=== PATIENT | male | born 1960 | race Caucasian/White ===

== ENCOUNTER 2018-05-28 09:57 | Inpatient (IN) | payer OTHER ==
--- NOTE | 2018-05-28 10:17 | PDOC ---
History of Present Illness - General Chief Complaint: Pain, Acute Stated Complaint: SIDE PAIN/VOMITTING Time Seen by Provider: 05/28/18 10:13 - History of Present Illness Initial Comments: 05/28/18 10:31 58yo M luxembourgish speaking male with no PMH presents to the ED with R sided abdominal pain for 1 month and NBNB vomiting for 1 week. +anorexia and weight loss over the last month. Pt was in DR 1 month ago, diagnosed with cholecystitis, treated with antibiotics and DC. Denies fevers, chills, diarrhea, CP, SOB, focal weakness/ numbness, constipation. Pt has had 2 inguinal hernia repairs distantly PT states he is on a medication he got from the DR called immunoferon, states he doesnt know for what Denies hx liver disease Saw his PMD this morning and when he vomited, they sent him to the ED. Past History - Past Medical History Allergies/Adverse Reactions: Allergies Allergy/AdvReac Type Severity Reaction Status Date / Time No Known Allergies Allergy Verified 05/28/18 10:02 Home Medications: Ambulatory Orders Inmunoferon 0 cap ASDIR 05/28/18 COPD: No GI Disorders: Yes (hepatic disease) - Suicide/Smoking/Psychosocial Hx Smoking History: Never smoked Review of Systems - Review of Systems Comments:: 05/28/18 13:56 GENERAL/CONSTITUTIONAL: No fever or chills. No weakness. HEAD, EYES, EARS, NOSE AND THROAT: No change in vision. No ear pain or discharge. No sore throat. GASTROINTESTINAL: +nausea, vomiting, no diarrhea or constipation.+abd pain GENITOURINARY: No dysuria, frequency, or change in urination. CARDIOVASCULAR: No chest pain or shortness of breath. RESPIRATORY: No cough, wheezing, or hemoptysis. MUSCULOSKELETAL: No joint or muscle swelling or pain. No neck or back pain. SKIN: No rash NEUROLOGIC: No headache, vertigo, loss of consciousness, or change in strength/ sensation. ENDOCRINE: No increased thirst. No abnormal weight change. HEMATOLOGIC/LYMPHATIC: No anemia, easy bleeding, or history of blood clots. ALLERGIC/IMMUNOLOGIC: No hives or skin allergy. *Physical Exam - Vital Signs Last Vital Signs Temp Pulse Resp BP Pulse Ox 98.1 F 116 H 18 116/69 100 05/28/18 09:58 05/28/18 09:58 05/28/18 09:58 05/28/18 09:58 05/28/18 09:58 - Physical Exam Comments: 05/28/18 13:58 GENERAL: Awake, alert, and fully oriented, in no acute distress HEAD: No signs of trauma EYES: PERRLA, EOMI, sclera anicteric, conjunctiva clear ENT: Oropharynx clear without exudates. Dry MM NECK: Normal ROM, supple, no lymphadenopathy, JVD, or masses LUNGS: Breath sounds equal, clear to auscultation bilaterally. No wheezes, and no crackles HEART: Regular rate and rhythm, normal S1 and S2, no murmurs, rubs or gallops ABDOMEN: Soft, nontender, normoactive bowel sounds. No guarding, no rebound. No masses EXTREMITIES: Normal range of motion, no edema. No clubbing or cyanosis. No cords, erythema, or tenderness NEUROLOGICAL: Normal speech, cranial nerves intact, equal strength and sensation b/l SKIN: Warm, Dry, normal turgor, no rashes or lesions noted. Moderate Sedation - Procedure Monitoring Vital Signs: Procedure Monitoring Vital Signs Temperature 98.1 F 05/28/18 09:58 Pulse Rate 116 H 05/28/18 09:58 Respiratory Rate 18 05/28/18 09:58 Blood Pressure 116/69 05/28/18 09:58 O2 Sat by Pulse Oximetry (%) 100 05/28/18 09:58 Heart Score/ECG Review #1 05/28/18 14:16 Twelve-lead EKG was performed and reviewed by me. Sinus tachycardia, rate 105. Normal axis. No ST elevations or T-wave inversions. ED Treatment Course - LABORATORY CBC & Chemistry Diagram: 05/28/18 11:00 05/28/18 11:00 Medical Decision Making - Medical Decision Making 05/28/18 13:34 58yo M recent diganosis cholecystitis presents to the ED with persistent RUQ pain, vomiting, weight loss. Labs with bili, AST/ALT, Fortino phos bump and leukocytosis to 18. US with small stones, thickened wall, sludge, and borderline dilated CBD. Case discussed with Dr. Chávez Plan to cover with Rachelle Pt status post 1L NS, now getting LR @125cc/hr NPO MRCP Hepatitis panel Pt admitted to hospitalist, case dicussed with Alban Bazan, pt accepted to Dr. Aguilera's service Case discussed in detail with admitting physician including history, physical exam and ancillary studies. Admitting physician has assumed care for the patient, will follow all pending diagnostics and will complete the evaluation and treatment. *DC/Admit/Observation/Transfer Diagnosis at time of Disposition: Cholecystitis, Vomiting, Abdominal pain - Discharge Dispostion Condition at time of disposition: Stable Decision to Admit order: Yes - Referrals Referrals: Jewel Soriano MD [Primary Care Provider] - - Patient Instructions - Post Discharge Activity - Attestations Physician Attestion: 05/28/18 13:18 I, Dr. Charli Bhatt MD, attest that this document has been prepared under my direction and personally reviewed by me in its entirety. I further attest, that it accurately reflects all work, treatment, procedures and medical decision -making performed by me.
[2018-05-28] MEDS ORDERED: SODIUM CHLORIDE 1,000 ML IV STA (10:39)
[2018-05-28] MEDS ORDERED: ONDANSETRON 4 MG/2 ML VIAL IVPUSH ONE (10:40)
[2018-05-28] MEDS ORDERED: ACETAMINOPHEN 1000 MG/100 ML VIAL (NON FORMULARY) IVPB ONE ×2 (10:40→17:30)
[2018-05-28] MEDS ORDERED: ONDANSETRON 4 MG/2 ML VIAL ONE (11:06)
[2018-05-28] MEDS ORDERED: ACETAMINOPHEN INJECTION 100 ML IVPB ONE (11:06)
[2018-05-28 11:25] LABS: BASO % 0.3 % (0-2.0); HEMATOCRIT 42.3 % (35.4-49); HEMOGLOBIN 14.3 GM/dL (11.7-16.9); MCH 27.5 pg (25.7-33.7); MCHC 33.7 g/dl (32.0-35.9); MEAN CELL VOLUME 81.4 fl (80-96); MEAN PLT VOLUME 9.2 fl (7.5-11.1); MONO % 6.2 % (3.8-10.2); NEUT % 91.5 % (42.8-82.8); PLATELET COUNT 308 K/MM3 (134-434); RDW 13.5 % (11.9-15.9); WHITE BLOOD COUNT 18.2 K/mm3 (4.0-10.0)
[2018-05-28 12:04] LABS: ALBUMIN 3.6 g/dl (3.4-5.0); ALK PHOS 123 U/L (45-117); ANION GAP 7 MMOL/L (8-16); BILIRUBIN,TOTAL 2.4 mg/dL (0.2-1); BLOOD UREA NITROGEN 15 mg/dL (7-18); CALCIUM 9.3 mg/dL (8.5-10.1); CHLORIDE 103 mmol/L (98-107); CO2 27 mmol/L (21-32); CREATININE 1.2 mg/dL (0.55-1.3); GLUCOSE,RANDOM 100 mg/dL (74-106); LIPASE 146 U/L (73-393); POTASSIUM 4.1 mmol/L (3.5-5.1); SGOT/AST 181 U/L (15-37); SGPT/ALT 152 U/L (13-61); SODIUM 137 mmol/L (136-145); TOT PROT 6.9 g/dl (6.4-8.2)
[2018-05-28 12:27] LABS: ANISOCYTOSIS 0; MACROCYTOSIS 0; PLATELET ESTIMATE NORMAL
[2018-05-28] MEDS ORDERED: PIPERACILLIN/TAZOB 4.5 GM 4.5 GM in DEXTROSE 5%-WATER - 100 ML IVPB ONE (12:59)
[2018-05-28] MEDS ORDERED: LACTATED RINGERS SOLUTION 1,000 ML/1,000 ML INFUS.BAG IV SCH (13:00)
[2018-05-28] MEDS ORDERED: PIPERACILLIN/TAZOB 4.5 GM 4.5 GM/100 ML BAG IVPB ONE (13:24)
[2018-05-28] MEDS ORDERED: LACTATED RINGERS SOLUTION 1,000 ML IV SCH (13:30)
--- NOTE | 2018-05-28 13:34 | HP ---
CHIEF COMPLAINT: Abdominal pain PCP: None HISTORY OF PRESENT ILLNESS: 58yo Latvian-speaking M with no history who presents Recent Travel: Resides in [place]ST MEDICAL HISTORY: Reportedly none PAST SURGICAL HISTORY: None Social History: Smoking: Denies Alcohol: Denies Drugs: Denies Allergies No Known Allergies Allergy (Verified 05/28/18 10:02) HOME MEDICATIONS: Home Medications Medication Instructions Recorded Inmunoferon 0 cap ASDIR 05/28/18 REVIEW OF SYSTEMS As per HPI PHYSICAL EXAMINATION Vital Signs - 24 hr 05/28/18 09:58 Temperature 98.1 F Pulse Rate 116 H Respiratory 18 Rate Blood Pressure 116/69 O2 Sat by Pulse 100 Oximetry (%) GENERAL: Awake, alert, and fully oriented, in no acute distress. HEAD: Normal with no signs of trauma. EYES: Pupils equal, round and reactive to light, extraocular movements intact, sclera anicteric, conjunctiva clear. No lid lag. EARS, NOSE, THROAT: Ears normal, nares patent, oropharynx clear without exudates. Moist mucous membranes. NECK: Normal range of motion, supple without lymphadenopathy, JVD, or masses. LUNGS: Breath sounds equal, clear to auscultation bilaterally. No wheezes, and no crackles. No accessory muscle use. HEART: Regular rate and rhythm, normal S1 and S2 without murmur, rub or gallop. ABDOMEN: Soft, nontender, not distended, normoactive bowel sounds, no guarding, no rebound, no masses. No hepatomegaly or splenomegaly. MUSCULOSKELETAL: Normal range of motion at all joints. No bony deformities or tenderness. No CVA tenderness. UPPER EXTREMITIES: 2+ pulses, warm, well-perfused. No cyanosis. No clubbing. No peripheral edema. LOWER EXTREMITIES: 2+ pulses, warm, well-perfused. No calf tenderness. No peripheral edema. NEUROLOGICAL: Cranial nerves II-XII intact. Normal speech. Normal gait. PSYCHIATRIC: Cooperative. Good eye contact. Appropriate mood and affect. SKIN: Warm, dry, normal turgor, no rashes or lesions noted, normal capillary refill. Laboratory Results - last 24 hr 05/28/18 05/28/18 05/28/18 11:00 11:00 11:00 WBC 18.2 H RBC 5.20 Hgb 14.3 Hct 42.3 MCV 81.4 MCH 27.5 MCHC 33.7 RDW 13.5 Plt Count 308 MPV 9.2 Absolute Neuts (auto) 16.7 H Neutrophils % 91.5 H Neutrophils % (Manual) 94.0 H Band Neutrophils % 0.0 Lymphocytes % 2.0 L Lymphocytes % (Manual) 3.0 L Monocytes % 6.2 Monocytes % (Manual) 2 L Eosinophils % 0.0 Eosinophils % (Manual) 0.0 Basophils % 0.3 Basophils % (Manual) 1.0 Myelocytes % (Man) 0 Promyelocytes % (Man) 0 Blast Cells % (Manual) 0 Nucleated RBC % 0 Metamyelocytes 0 Hypochromia 0 Platelet Estimate Normal Polychromasia 0 Poikilocytosis 0 Anisocytosis 0 Microcytosis 0 Macrocytosis 0 PTT (Actin FS) 25.5 Sodium 137 Potassium 4.1 Chloride 103 Carbon Dioxide 27 Anion Gap 7 L BUN 15 Creatinine 1.2 Creat Clearance w eGFR > 60 Random Glucose 100 Calcium 9.3 Total Bilirubin 2.4 H AST 181 H ALT 152 H Alkaline Phosphatase 123 H Total Protein 6.9 Albumin 3.6 Lipase 146 Blood Type Antibody Screen 05/28/18 11:00 WBC RBC Hgb Hct MCV MCH MCHC RDW Plt Count MPV Absolute Neuts (auto) Neutrophils % Neutrophils % (Manual) Band Neutrophils % Lymphocytes % Lymphocytes % (Manual) Monocytes % Monocytes % (Manual) Eosinophils % Eosinophils % (Manual) Basophils % Basophils % (Manual) Myelocytes % (Man) Promyelocytes % (Man) Blast Cells % (Manual) Nucleated RBC % Metamyelocytes Hypochromia Platelet Estimate Polychromasia Poikilocytosis Anisocytosis Microcytosis Macrocytosis PTT (Actin FS) Sodium Potassium Chloride Carbon Dioxide Anion Gap BUN Creatinine Creat Clearance w eGFR Random Glucose Calcium Total Bilirubin AST ALT Alkaline Phosphatase Total Protein Albumin Lipase Blood Type O POSITIVE Antibody Screen Negative ASSESSMENT/PLAN: Abdominal pain r/o cholecystitis (acute vs. chronic) Transaminitis Hyperbilirubinemia Leukocytosis with Left-shift --Surgery consulted --Coverage with Zosyn 3.375gm q8h --MRCP for further imaging --Morphine 2mg q4h PRN for pain 7-10 --LR bolus in ED; continue LR @125cc/hr FEN: Fluids: LR@125cc/hr Electrolyte abnormalities: None Nutrition: STRICT NPO PPX: DVT - SCDs only Dispo: Admit to med-surg; MRCP pending Case discussed with Dr. Chávez and Dr. Willy Phoenix, DO - IM PGY-2
[2018-05-28 14:34] LABS: INR 1.27 (0.83-1.09)
[2018-05-28 14:39] LABS: URINE APPEARANCE CLEAR; URINE BILIRUBIN NEGATIVE (<2.0 mg/dL); URINE COLOR LTYELLOW; URINE GLUCOSE (UA) NEGATIVE (NEGATIVE); URINE KETONE NEGATIVE (NEGATIVE); URINE LEUK ESTERASE NEGATIVE (NEGATIVE); URINE NITRITE NEGATIVE (NEGATIVE); URINE PROTEIN NEGATIVE (NEGATIVE); URINE UROBILINOGEN NEGATIVE mg/dL (0.2-1.0)
[2018-05-28 14:42] LABS: EPI CELLS RARE /HPF (FEW)
--- NOTE | 2018-05-28 14:53 | PN ---
Teaching Attending Note Name of Resident: Anibal Phoenix ATTENDING PHYSICIAN STATEMENT I saw and evaluated the patient. I reviewed the resident's note and discussed the case with the resident. I agree with the resident's findings and plan as documented. SUBJECTIVE: OBJECTIVE: Initial Vital Signs Temp Pulse Resp BP Pulse Ox 98.1 F 116 H 18 116/69 100 05/28/18 09:58 05/28/18 09:58 05/28/18 09:58 05/28/18 09:58 05/28/18 09:58 Vital Signs Period Temp Pulse Resp BP Sys/Mackenzie Pulse Ox Last 24 Hr 98.1 F 116 18 116/69 100 GENERAL: Awake, alert, and fully oriented, in no acute distress. HEAD: Normal with no signs of trauma. EYES: Pupils equal, round and reactive to light, extraocular movements intact, sclera anicteric, conjunctiva clear. No lid lag. EARS, NOSE, THROAT: Ears normal, nares patent, oropharynx clear without exudates. Moist mucous membranes. NECK: Normal range of motion, supple without lymphadenopathy, JVD, or masses. LUNGS: Breath sounds equal, clear to auscultation bilaterally. No wheezes, and no crackles. No accessory muscle use. HEART: Regular rate and rhythm, normal S1 and S2 without murmur, rub or gallop. ABDOMEN: Soft, nontender, not distended, normoactive bowel sounds, no guarding, no rebound, no masses. No hepatomegaly or splenomegaly. MUSCULOSKELETAL: Normal range of motion at all joints. No bony deformities or tenderness. No CVA tenderness. EXTREMITIES: 2+ pulses, warm, well-perfused. No cyanosis. No clubbing. No peripheral edema. NEUROLOGICAL: Cranial nerves II-XII intact. Normal speech. Normal gait. PSYCHIATRIC: Cooperative. Good eye contact. Appropriate mood and affect. SKIN: Warm, dry, normal turgor, no rashes or lesions noted, normal capillary refill. CBCD WBC 18.2 K/mm3 (4.0-10.0) H 05/28/18 11:00 RBC 5.20 M/mm3 (4.00-5.60) 05/28/18 11:00 Hgb 14.3 GM/dL (11.7-16.9) 05/28/18 11:00 Hct 42.3 % (35.4-49) 05/28/18 11:00 MCV 81.4 fl (80-96) 05/28/18 11:00 MCHC 33.7 g/dl (32.0-35.9) 05/28/18 11:00 RDW 13.5 % (11.9-15.9) 05/28/18 11:00 Plt Count 308 K/MM3 (134-434) 05/28/18 11:00 MPV 9.2 fl (7.5-11.1) 05/28/18 11:00 CMP Sodium 137 mmol/L (136-145) 05/28/18 11:00 Potassium 4.1 mmol/L (3.5-5.1) 05/28/18 11:00 Chloride 103 mmol/L (98-107) 05/28/18 11:00 Carbon Dioxide 27 mmol/L (21-32) 05/28/18 11:00 Anion Gap 7 MMOL/L (8-16) L 05/28/18 11:00 BUN 15 mg/dL (7-18) 05/28/18 11:00 Creatinine 1.2 mg/dL (0.55-1.3) 05/28/18 11:00 Creat Clearance w eGFR > 60 (>60) 05/28/18 11:00 Random Glucose 100 mg/dL (74-106) 05/28/18 11:00 Calcium 9.3 mg/dL (8.5-10.1) 05/28/18 11:00 Total Bilirubin 2.4 mg/dL (0.2-1) H 05/28/18 11:00 AST 181 U/L (15-37) H 05/28/18 11:00 ALT 152 U/L (13-61) H 05/28/18 11:00 Alkaline Phosphatase 123 U/L (45-117) H 05/28/18 11:00 Total Protein 6.9 g/dl (6.4-8.2) 05/28/18 11:00 Albumin 3.6 g/dl (3.4-5.0) 05/28/18 11:00 Current Medications Generic Name Dose Route Start Last Admin Trade Name Freq PRN Reason Stop Dose Admin Lactated Ringer's 1,000 mls @ 125 mls/hr 05/28/18 13:30 Lactated Ringers Solution IV ASDIR DUNIA Piperacillin Sod/Tazobactam 50 mls @ 100 mls/hr 05/28/18 18:00 Sod 3.375 gm/ Dextrose IVPB Q8H-IV DUNIA Protocol Morphine Sulfate 2 mg 05/28/18 13:29 Morphine Sulfate IVPUSH Q4H PRN PAIN LEVEL 7 - 10 Home Medications Medication Instructions Recorded Inmunoferon 0 cap ASDIR 05/28/18 ASSESSMENT AND PLAN: # Acute Abdominal pain r/o cholecystitis with leukocytosis on iv zosyn, ID on the case. ordered MRCP pending, surgery on the case # Acute transaminitis will monitor # Hyperbilirubinemia
--- NOTE | 2018-05-28 16:27 | CON.GI ---
Consult Consult Specialty:: GI Referred by:: Hospitalist Service Reason for Consultation:: Abdominal pain and abnormal liver chemistries - History of Present Illness Chief Complaint: I was having pain and was told I had a gallbladder problem in the [place] History of Present Illness: 58M admitted through [facility] ER for evaluation of abdominal pain. He describes the pain as intermittent in nature, worse after meals and located in the right upper abdomen. He describes lower back pressure when the pain occurs as well and had associated nausea with vomiting as well as chills. In the ED he was noted to have a WBC of 18K and abdominal U that revealed sludge and gallstones in the gallbladder without dilated ducts. transaminases as well as alp and bilirubin were elevated as well. These pain events have occurred intermittently over the last 3 years, the first episode occurring while he was in his home country of [facility]. The most recent episode was when he was on a recent trip to the [facility]. It appears as though he had an abdominal US in the [facility] revealing normal appearing liver and thickened gallbladder wall. It also appears as though he was given antibiotics and inmunoferon (a supplement). He continues to describe right upper quadrant abdominal pain, worse with inspiration. He denies any change in dietary habits , sick contacts with similar complaints, recent OTC medication use, IVDA/DA, known history of viral hepatitides, diarrhea, insect bites. He has never had a colonoscopy. There is no family history of colorectal cancer, liver disease or other GI malignancy. His mother had "gallbladder problems" prompting cholecystectomy. - History Source History Provided By: Patient, Family Member Limitations to Obtaining History: No Limitations - Past Surgical History Additional Surgical History: Right shoulder surgery, B/L inguinal hernia repairs. - Alcohol/Substance Use Hx Alcohol Use: Yes (social) History of Substance Use: reports: None - Smoking History Smoking history: Never smoked - Social History Usual Living Arrangement: With Spouse ADL: Independent Occupation: [employer] Place of : Other ([facility]) Home Medications - Allergies Allergies/Adverse Reactions: Allergies Allergy/AdvReac Type Severity Reaction Status Date / Time No Known Allergies Allergy Verified 05/28/18 10:02 - Home Medications Home Medications: Ambulatory Orders Inmunoferon 0 cap ASDIR 05/28/18 Family Disease History - Family Disease History Family Disease History: Other: Father (Alive: healthy), Mother (Alive: healthy) , Brother (1, healthy), Sister (None), Son (None), Daughter (None) Other Family History: No family h/o colorectal cancer, liver disease, other GI malignancy Review of Systems - Review of Systems Constitutional: reports: Chills. denies: Unintentional Wgt. Loss Cardiovascular: denies: Chest Pain Respiratory: denies: Cough, SOB Gastrointestinal: reports: Abdominal Pain, Indigestion, Nausea, Vomiting. denies: Constipation, Diarrhea, Rectal Bleeding, Vomiting Blood Physical Exam-GI Vital Signs: Vital Signs Temperature 98.6 F 05/28/18 13:00 Pulse Rate 97 H 05/28/18 13:00 Respiratory Rate 18 05/28/18 13:00 Blood Pressure 115/70 05/28/18 13:00 O2 Sat by Pulse Oximetry (%) 100 05/28/18 09:58 Constitutional: Yes: Calm Eyes: No: Sclera Icterus Cardiovascular: Yes: Regular Rate and Rhythm Respiratory: Yes: CTA Bilaterally Gastrointestinal Inspection: No: Distention, Scars ...Auscultate: Yes: Normoactive Bowel Sounds ...Palpate: Yes: Soft, Tenderness (TTP RUQ, + Ortega's sign). No: Hepatomegaly , Splenomegaly ...Percussion: No: Tympanitic Edema: No (No LE edema) Neurological: Yes: Alert Labs: CBC, BMP 05/28/18 11:00 05/28/18 11:00 INR, PTT INR 1.27 (0.83-1.09) H 05/28/18 11:00 Hepatic Panel Total Bilirubin 2.4 mg/dL (0.2-1) H 05/28/18 11:00 AST 181 U/L (15-37) H 05/28/18 11:00 ALT 152 U/L (13-61) H 05/28/18 11:00 Alkaline Phosphatase 123 U/L (45-117) H 05/28/18 11:00 Albumin 3.6 g/dl (3.4-5.0) 05/28/18 11:00 Imaging - Results Ultrasound: Report Reviewed Problem List - Problems (1) Cholecystitis Assessment/Plan: Clinical suspicion is that Mr. Gisella Ruiz has acute calculous cholecystitis with episodes of biliary colic in the past. Advise the following: NPO IV Hydration Monitor LFTs To exclude concomitant pathology such as retained stone in the bile duct, MRI/ MRCP of the abdomen has been ordered Surgery is following I Explained to Mr. Obando and his that he will likely need his gallbladder removed. I did explain that if MRI reveals retained stone in bile duct or if there is increasing clinical suspicion of such, then ERCP will be needed prior to cholecystectomy. Dr. Arrieta will be covering from 5pm this evening through the weekend Code(s): K81.9 - CHOLECYSTITIS, UNSPECIFIED
--- NOTE | 2018-05-28 16:42 | CONSULT ---
Consult Consult Specialty:: General Surgery Referred by:: Dr. Bhatt Reason for Consultation:: cholecystitis - History of Present Illness Chief Complaint: RUQ pain, N/V, chills, weight loss History of Present Illness: 58yo [place] M with no PMH, s/p bilat inguinal hernia repairs and R rotator cuff surgery, was in [place] from 05/06-05/15 and experienced RUQ pain, N/V, fatigue and weakness, and was seen there and diagnosed with cholecystitis by ultrasound and treated with antibiotics. The US report from there 05/13/18 showed essentially normal liver, gb wall thickening of 6mm, no mention of stones, no intra/extrahepatic ductal dilation, and no pancreatic abnormalities. He took Ceftriaxone and Gentamycin, and possibly another antibiotic, and also may have had a UTI. He had fatigue and weakness and was given Inmunoferon, an apparent supplement including zinc and iron, as well. He states he has finished all the meds from there. Lab work there showed WBC down from 23 to 9.3 as well, but chemistries are not available. Since his return to the [facility], he had been eating ok, and not vomiting, but last night he had some chills, and early this am, he developed colicky RUQ pain, associated with more n/v, subjective fever and chills, and today he went to his PMD Dr. Jewel Soriano, who sent him to the ER. He also reports some weight loss recently. Last po was last night. He denies diarrhea or constipation, last BM were 2 normal yesterday. In ER, his wbc is 18, he is afebrile, with elevated LFTs and bili 2.4, lipase normal at 146. US shows small stones/sludge in gallbladder without overt signs of cholecystitis. GI and surgery have been asked to evaluate. He is seen and examined in ER holding, with his , and nurse Cobb assisted with some Malay, though the patient was able to communicate well enough with me in both [place] and Malay to obtain his history. His pain is a little better, but still present. It also hurts when he breathes deeply. Dr. Mckeon is also present toward the end of my exam. - History Source History Provided By: Patient, Family Member ( at bedside) Limitations to Obtaining History: Language Barrier (Malay (helped by nurse Cobb)) - Past Medical History Hepatobiliary: Yes: Cholecystitis (late Apr[place]early [place] Musculoskeletal: Yes: Chronic low back pain - Past Surgical History Past Surgical History: Yes: Hernia Repair (bilat inguinal hernias, open) Additional Surgical History: Right shoulder rotator cuff surgery - Alcohol/Substance Use Hx Alcohol Use: Yes (social) History of Substance Use: reports: None - Smoking History Smoking history: Never smoked Have you smoked in the past 12 months: No - Social History Usual Living Arrangement: With Spouse ADL: Independent Occupation: Sterilization Specialist History of Recent Travel: Yes ([place] 05/06/18-05/15/18) Home Medications - Allergies Allergies/Adverse Reactions: Allergies Allergy/AdvReac Type Severity Reaction Status Date / Time No Known Allergies Allergy Verified 05/28/18 10:02 - Home Medications Home Medications: Ambulatory Orders Inmunoferon 0 cap ASDIR 05/28/18 Home Medications (free text): pt had recent abx from , but has finished all meds prescribed there. (Ceftriaxone, Gent, possibly another) Family Disease History - Family Disease History Family Disease History: Other: Father (Alive: healthy), Mother (Alive: healthy) , Brother (1, healthy), Sister (None), Son (None), Daughter (None) Other Family History: No family h/o colorectal cancer, liver disease, other GI malignancy Review of Systems - Review of Systems Constitutional: reports: Chills, Fever, Loss of Appetite (was eating after returning from , but not while sick), Unintentional Wgt. Loss Eyes: reports: Other (reading glasses). denies: Recent Change in Vision HENT: denies: Difficult Swallowing, Nasal Congestion, Throat Pain Neck: denies: Swollen Glands, Tenderness Cardiovascular: denies: Chest Pain, Palpitations Respiratory: denies: Cough, SOB Gastrointestinal: reports: Abdominal Pain (with hpi), Nausea (with hpi), Vomiting (with hpi). denies: Constipation, Diarrhea Genitourinary: denies: Burning, Dysuria Musculoskeletal: reports: Back Pain (lumbar, chronic; also some right sided with RUQ pain). denies: Joint Pain, Muscle Pain Integumentary: denies: Change in Color, Rash Neurological: reports: Dizziness (overnight and this morning), Headache (during illness, not now) Psychiatric: denies: Anxiety, Depression Physical Exam Vital Signs: Vital Signs Temperature 98.6 F 05/28/18 13:00 Pulse Rate 97 H 05/28/18 13:00 Respiratory Rate 18 05/28/18 13:00 Blood Pressure 115/70 05/28/18 13:00 O2 Sat by Pulse Oximetry (%) 100 05/28/18 09:58 Constitutional: Yes: Well Nourished, No Distress, Calm, Other (shivering/ subjective chills) Eyes: Yes: Conjunctiva Clear, EOM Intact. No: Sclera Icterus HENT: Yes: Atraumatic, Normocephalic Neck: Yes: Supple, Trachea Midline Cardiovascular: Yes: Regular Rate and Rhythm. No: Murmur Respiratory: Yes: Regular, CTA Bilaterally Gastrointestinal: Yes: Soft, Hypoactive Bowel Sounds, Tenderness (RUQ without guarding or rebound), Other (well healed bilateral groin scars). No: Distention , Tenderness, Epigastrium (minimal if any) ...Rectal Exam: Yes: Deferred Renal/: No: CVA Tenderness - Left, CVA Tenderness - Right Musculoskeletal: Yes: Back Pain (some lumbar tenderness). No: Joint Stiffness, Joint Swelling Extremities: No: Cool, Cyanosis Edema: No Peripheral Pulses WNL: Yes Integumentary: No: Jaundice, Rash Neurological: Yes: Alert, Oriented Psychiatric: Yes: Alert, Oriented Labs: CBC, BMP 05/28/18 11:00 05/28/18 11:00 CMP Sodium 137 mmol/L (136-145) 05/28/18 11:00 Potassium 4.1 mmol/L (3.5-5.1) 05/28/18 11:00 Chloride 103 mmol/L (98-107) 05/28/18 11:00 Carbon Dioxide 27 mmol/L (21-32) 05/28/18 11:00 Anion Gap 7 MMOL/L (8-16) L 05/28/18 11:00 BUN 15 mg/dL (7-18) 05/28/18 11:00 Creatinine 1.2 mg/dL (0.55-1.3) 05/28/18 11:00 Creat Clearance w eGFR > 60 (>60) 05/28/18 11:00 Random Glucose 100 mg/dL (74-106) 05/28/18 11:00 Calcium 9.3 mg/dL (8.5-10.1) 05/28/18 11:00 Total Bilirubin 2.4 mg/dL (0.2-1) H 05/28/18 11:00 AST 181 U/L (15-37) H 05/28/18 11:00 ALT 152 U/L (13-61) H 05/28/18 11:00 Alkaline Phosphatase 123 U/L (45-117) H 05/28/18 11:00 Total Protein 6.9 g/dl (6.4-8.2) 05/28/18 11:00 Albumin 3.6 g/dl (3.4-5.0) 05/28/18 11:00 Lipase 146 U/L (73-393) 05/28/18 11:00 INR, PTT INR 1.27 (0.83-1.09) H 05/28/18 11:00 Urine Test Results Urine Color Ltyellow 05/28/18 14:20 Urine Appearance Clear 05/28/18 14:20 Urine pH 7.0 (5.0-8.0) 05/28/18 14:20 Ur Specific [place] 1.012 (1.010-1.035) 05/28/18 14:20 Urine Protein Negative (NEGATIVE) 05/28/18 14:20 Urine Glucose (UA) Negative (NEGATIVE) 05/28/18 14:20 Urine Ketones Negative (NEGATIVE) 05/28/18 14:20 Urine Blood 1+ (NEGATIVE) H 05/28/18 14:20 Urine Nitrite Negative (NEGATIVE) 05/28/18 14:20 Urine Bilirubin Negative (<2.0 mg/dL) 05/28/18 14:20 Ur Leukocyte Esterase Negative (NEGATIVE) 05/28/18 14:20 Ur Epithelial Cells Rare /HPF (FEW) 05/28/18 14:20 Imaging - Results Ultrasound: Report Reviewed, Image Reviewed (images reviewed - cbd normal, sludge/small stones in gb, minimal wall thickening, no pericholecystic fluid) MRI: Pending Other: Report Reviewed (report from 05/13/[address] reviewed with images - gallbladder wall 6mm, report does not mention stones, difficult to appreciate on images +/-), Image Reviewed Problem List - Problems (1) Calculus of gallbladder with acute and chronic cholecystitis without obstruction Assessment/Plan: most likely acute cholecystitis, possibly in context of recently treated same, now acute on chronic? with element of biliary colic admitted to medicine NPO/IVF agree with IV antibiotics, Zosyn - need ID MRCP pending trend labs including lipase hepatitis panel pending pain meds prn GI/DVT prophylaxis GI consult noted will f/u after MRI in am Thank you for the opportunity to participate in the care of this patient. Code(s): K80.12 - CALCULUS OF GB W ACUTE AND CHRONIC CHOLECYST W/O OBSTRUCTION (2) RUQ pain Code(s): R10.11 - RIGHT UPPER QUADRANT PAIN (3) Elevated LFTs Code(s): R94.5 - ABNORMAL RESULTS OF LIVER FUNCTION STUDIES (4) Hyperbilirubinemia Code(s): E80.6 - OTHER DISORDERS OF BILIRUBIN METABOLISM (5) Nausea & vomiting Code(s): R11.2 - NAUSEA WITH VOMITING, UNSPECIFIED Qualifiers: Vomiting type: unspecified Vomiting Intractability: non-intractable Qualified Code(s): R11.2 - Nausea with vomiting, unspecified
[2018-05-28] MEDS ORDERED: PIPERACILLIN/TAZOB 3.375 GM 3.375 GM in DEXTROSE 5%-WATER - 50 ML IVPB SCH ×3 (18:00)
[2018-05-28] MEDS ORDERED: VANCOMYCIN 1,000 MG in DEXTROSE 5%-WATER - 250 ML IVPB ONE (18:55)
[2018-05-28] MEDS ORDERED: VANCOMYCIN 1 GRAM (PRE-DOCKED) 1,000 MG/250 ML BAG IVPB ONE (19:15)
--- NOTE | 2018-05-28 20:17 | EKG ---
Test Reason : Blood Pressure : / mmHG Vent. Rate : 105 BPM Atrial Rate : 105 BPM P-R Int : 166 ms QRS Dur : 084 ms QT Int : 328 ms P-R-T Axes : 023 -14 038 degrees QTc Int : 433 ms SINUS TACHYCARDIA OTHERWISE NORMAL ECG NO PREVIOUS ECGS AVAILABLE Confirmed by JACKIE MCNEILL, CATRINA ([id number]) on 05/28/2018 8:17:19 PM Referred By: Confirmed By:CATRINA MEJIA MD
[2018-05-28] MEDS ORDERED: LORazepam 2 MG/ML SDV VIAL IVPUSH ONE (20:21)
[2018-05-28 21:10] LABS: BASO % 0.3 % (0-2.0); EOS % 0.1 % (0-4.5); HEMOGLOBIN 12.9 GM/dL (11.7-16.9); LYMPH % 6.1 % (8-40); MCH 27.5 pg (25.7-33.7); MCHC 34.1 g/dl (32.0-35.9); MEAN CELL VOLUME 80.7 fl (80-96); MEAN PLT VOLUME 9.3 fl (7.5-11.1); MONO % 6.5 % (3.8-10.2); PLATELET COUNT 266 K/MM3 (134-434); RDW 13.5 % (11.9-15.9); WHITE BLOOD COUNT 14.3 K/mm3 (4.0-10.0)
[2018-05-28] MEDS: MEROPENEM 1 GM in DEXTROSE 5%-WATER 100 ML IVPB SCH (21:17)
[2018-05-28] MEDS: LACTATED RINGERS SOLUTION 1,000 ML IV SCH (21:17)
[2018-05-28 22:24] LABS: ALK PHOS 107 U/L (45-117); ANION GAP 9 MMOL/L (8-16); BILIRUBIN,DIRECT 0.8 mg/dL (0.0-0.2); BILIRUBIN,TOTAL 3.1 mg/dL (0.2-1); BLOOD UREA NITROGEN 11 mg/dL (7-18); CALCIUM 8.3 mg/dL (8.5-10.1); CHLORIDE 107 mmol/L (98-107); CO2 24 mmol/L (21-32); GLUCOSE,RANDOM 88 mg/dL (74-106); MAGNESIUM 1.9 mg/dL (1.8-2.4); PHOSPHOROUS 2.3 mg/dL (2.5-4.9); POTASSIUM 3.7 mmol/L (3.5-5.1); SGOT/AST 80 U/L (15-37); SGPT/ALT 119 U/L (13-61); SODIUM 140 mmol/L (136-145); TOT PROT 5.9 g/dl (6.4-8.2)
[2018-05-28 23:38] VITALS: BMI 26.6
[2018-05-29] MEDS ORDERED: PT OWN MED DRAWER 7, Y5N ONE (01:29)
[2018-05-29] MEDS: MEROPENEM 1 GM in DEXTROSE 5%-WATER 100 ML IVPB SCH ×3 (01:58→18:18)
--- NOTE | 2018-05-29 02:53 | PN ---
Progress Note (short form) - Note Progress Note: Patient is comfortable with no acute distress, feels better now, low grade fever. Vital Signs Temperature 99.5 F 05/29/18 02:00 Pulse Rate 109 H 05/29/18 02:00 Respiratory Rate 20 05/29/18 02:00 Blood Pressure 113/65 05/29/18 02:00 O2 Sat by Pulse Oximetry (%) 99 05/28/18 23:24 GENERAL: Awake, alert, and fully oriented, in no acute distress. HEAD: Normal with no signs of trauma. EYES: Pupils equal, round and reactive to light, extraocular movements intact, sclera anicteric, conjunctiva clear. EARS, NOSE, THROAT: Ears normal, oropharynx clear without exudates. Moist mucous membranes. NECK: Normal range of motion, supple without lymphadenopathy, JVD, or masses. LUNGS: Breath sounds equal, clear to auscultation bilaterally. No wheezes, and no crackles. No accessory muscle use. HEART: Regular rate and rhythm, normal S1 and S2 without murmur, rub or gallop. ABDOMEN: Soft, mild tenderness , not distended, normoactive bowel sounds, no guarding, no rebound, no masses. . MUSCULOSKELETAL: Normal range of motion at all joints. No bony deformities or tenderness. No CVA tenderness. EXTREMITIES: 2+ pulses, warm, well-perfused. No cyanosis. No clubbing. No peripheral edema. NEUROLOGICAL: Cranial nerves II-XII intact. Normal speech. Normal gait. PSYCHIATRIC: Cooperative. Good eye contact. Appropriate mood and affect. SKIN: Warm, dry, normal turgor, no rashes or lesions noted, normal capillary refill. CBCD WBC 14.3 K/mm3 (4.0-10.0) H 05/28/18 20:30 RBC 4.70 M/mm3 (4.00-5.60) 05/28/18 20:30 Hgb 12.9 GM/dL (11.7-16.9) 05/28/18 20:30 Hct 38.0 % (35.4-49) 05/28/18 20:30 MCV 80.7 fl (80-96) 05/28/18 20:30 MCHC 34.1 g/dl (32.0-35.9) 05/28/18 20:30 RDW 13.5 % (11.9-15.9) 05/28/18 20:30 Plt Count 266 K/MM3 (134-434) 05/28/18 20:30 MPV 9.3 fl (7.5-11.1) 05/28/18 20:30 CMP Sodium 140 mmol/L (136-145) 05/28/18 21:30 Potassium 3.7 mmol/L (3.5-5.1) 05/28/18 21:30 Chloride 107 mmol/L (98-107) 05/28/18 21:30 Carbon Dioxide 24 mmol/L (21-32) 05/28/18 21:30 Anion Gap 9 MMOL/L (8-16) 05/28/18 21:30 BUN 11 mg/dL (7-18) 05/28/18 21:30 Creatinine 1.0 mg/dL (0.55-1.3) 05/28/18 21:30 Creat Clearance w eGFR > 60 (>60) 05/28/18 21:30 Random Glucose 88 mg/dL (74-106) 05/28/18 21:30 Calcium 8.3 mg/dL (8.5-10.1) L 05/28/18 21:30 Total Bilirubin 3.1 mg/dL (0.2-1) H 05/28/18 21:30 AST 80 U/L (15-37) H 05/28/18 21:30 ALT 119 U/L (13-61) H 05/28/18 21:30 Alkaline Phosphatase 107 U/L (45-117) 05/28/18 21:30 Total Protein 5.9 g/dl (6.4-8.2) L 05/28/18 21:30 Albumin 3.0 g/dl (3.4-5.0) L 05/28/18 21:30 Current Medications Generic Name Dose Route Start Last Admin Trade Name Freq PRN Reason Stop Dose Admin Meropenem 1 gm/ Dextrose 100 mls @ 200 mls/hr 05/28/18 19:00 05/29/18 01:58 IVPB 200 mls/hr Q8H-IV DUNIA Administration Lactated Ringer's 1,000 mls @ 200 mls/hr 05/28/18 19:05 05/28/18 21:17 Lactated Ringers Solution IV 200 mls/hr ASDIR DUNIA Administration Morphine Sulfate 2 mg 05/28/18 13:29 Morphine Sulfate IVPUSH Q4H PRN PAIN LEVEL 7 - 10 Home Medications Medication Instructions Recorded Inmunoferon 0 cap ASDIR 05/28/18 ASSESSMENT AND PLAN: Patient is a 58yo male with PMhx of cholelithiasis/cholecystitis, presented with fever of 103. with worsening symptoms. # Fever, leukocytosis can't r/o cholecystitis , check MRCP result still pending the official report , IVF 200cc/hr. IV meropenem continue, and vancomycin 1gm x 1 given, ID/GI/Surgery on the case will repeat CMP , and bilirubin. if MRI reveals retained stone in bile duct , patient will need ERCP prior to cholecystectomy. Dr. Arrieta is covering is covering Dr. Vogt through the weekend. # Acute transaminitis improving will monitor # Hyperbilirubinemia improving will continue to monitor. DVt Px: heparin sq Visit type - Emergency Visit Emergency Visit: Yes ED Registration Date: 05/28/18 Care time: The patient presented to the Emergency Department on the above date and was hospitalized for further evaluation of their emergent condition. - New Patient This patient is new to me today: No - Critical Care Critical Care patient: No - Discharge Referral Referred to [facility] Med P.C.: No
[2018-05-29 03:21] LABS: HEP.C VIRUS AB <0.1 s/co ratio (0.0-0.9)
[2018-05-29] MEDS: MORPHINE SULFATE 2 MG/ML VIAL IVPUSH PRN ×2 (04:05→07:38)
[2018-05-29] MEDS ORDERED: ACETAMINOPHEN 1000 MG/100 ML VIAL (NON FORMULARY) IVPB ONE ×3 (06:07→17:30)
[2018-05-29] MEDS: LACTATED RINGERS SOLUTION 1,000 ML IV SCH ×2 (06:45→18:19)
--- NOTE | 2018-05-29 07:05 | PN ---
Progress Note, Physician Chief Complaint: fever, RUQ pain History of Present Illness: PATIENT STILL COMPLAINS OF RUQ ABDOMINAL PAIN AND NAUSEA , FEVER NOTED - Current Medication List Current Medications: Active Medications Meropenem 1 gm/ Dextrose 100 mls @ 200 mls/hr IVPB Q8H-IV DUNIA Last Admin: 05/29/18 01:58 Dose: 200 mls/hr Lactated Ringer's (Lactated Ringers Solution) 1,000 mls @ 200 mls/hr IV ASDIR DUNIA Last Admin: 05/29/18 06:45 Dose: 200 mls/hr Morphine Sulfate (Morphine Sulfate) 2 mg IVPUSH Q4H PRN PRN Reason: PAIN LEVEL 7 - 10 Last Admin: 05/29/18 04:05 Dose: 2 mg - Objective Vital Signs: Vital Signs Temperature 99.8 F H 05/29/18 07:04 Pulse Rate 109 H 05/29/18 02:00 Respiratory Rate 20 05/29/18 02:00 Blood Pressure 113/65 05/29/18 02:00 O2 Sat by Pulse Oximetry (%) 99 05/29/18 06:00 Constitutional: Yes: Well Nourished, No Distress, Calm Neck: Yes: WNL Cardiovascular: Yes: WNL, Regular Rate and Rhythm Respiratory: Yes: WNL, Regular, CTA Bilaterally Gastrointestinal: Yes: WNL, Normal Bowel Sounds, Other (RUQ TENDERNESS , NML BS) Labs: CBC, BMP 05/28/18 20:30 05/28/18 21:30 INR, PTT INR 1.27 (0.83-1.09) H 05/28/18 11:00 Problem List - Problems (1) Abdominal pain Code(s): R10.9 - UNSPECIFIED ABDOMINAL PAIN (2) Cholecystitis Assessment/Plan: MRCP REVIEWED - CHOLECYSTITIS NO CHOLEDOCHOLITHIASIS NOTED ON THE EXAM . ALSO WITH PANCREATIC CYST - C/W ABX - NPO / IVF - CONTINUE TO MONITOR LFT - TRANSAMINITIS NOT CONSISTENT WITH CHOLEDOCHOLITHIASIS BUT INSTEAD MOST CONSISTENT WITH ACUTE CHOLECYSTITIS. - PLAN FOR CHOLECYSTECTOMY PER SURGERY TEAM WILL F/U Code(s): K81.9 - CHOLECYSTITIS, UNSPECIFIED (3) Elevated LFTs Code(s): R94.5 - ABNORMAL RESULTS OF LIVER FUNCTION STUDIES (4) Nausea & vomiting Code(s): R11.2 - NAUSEA WITH VOMITING, UNSPECIFIED Qualifiers: Vomiting type: unspecified Vomiting Intractability: non-intractable Qualified Code(s): R11.2 - Nausea with vomiting, unspecified
[2018-05-29 07:40] LABS: BASO % 0.3 % (0-2.0); HEMOGLOBIN 12.8 GM/dL (11.7-16.9); LYMPH % 1.5 % (8-40); MCH 27.4 pg (25.7-33.7); MCHC 33.8 g/dl (32.0-35.9); MEAN PLT VOLUME 9.5 fl (7.5-11.1); MONO % 4.9 % (3.8-10.2); NEUT % 93.3 % (42.8-82.8); PLATELET COUNT 226 K/MM3 (134-434); RBC 4.69 M/mm3 (4.00-5.60); RDW 13.7 % (11.9-15.9); WHITE BLOOD COUNT 15.1 K/mm3 (4.0-10.0)
[2018-05-29 08:11] LABS: ALBUMIN 2.9 g/dl (3.4-5.0); ALK PHOS 108 U/L (45-117); ANION GAP 10 MMOL/L (8-16); BILIRUBIN,DIRECT 1.3 mg/dL (0.0-0.2); BILIRUBIN,TOTAL 3.8 mg/dL (0.2-1); BLOOD UREA NITROGEN 11 mg/dL (7-18); CALCIUM 8.6 mg/dL (8.5-10.1); CHLORIDE 104 mmol/L (98-107); CO2 25 mmol/L (21-32); CREATININE 1.1 mg/dL (0.55-1.3); GLUCOSE,RANDOM 96 mg/dL (74-106); LIPASE 100 U/L (73-393); MAGNESIUM 1.6 mg/dL (1.8-2.4); PHOSPHOROUS 2.3 mg/dL (2.5-4.9); POTASSIUM 3.6 mmol/L (3.5-5.1); SGOT/AST 57 U/L (15-37); SGPT/ALT 106 U/L (13-61); SODIUM 138 mmol/L (136-145); TOT PROT 5.9 g/dl (6.4-8.2)
[2018-05-29] MEDS ORDERED: MORPHINE SULFATE 2 MG/ML VIAL IVPUSH PRN ×3 (08:22→17:16)
[2018-05-29] MEDS ORDERED: ONDANSETRON 4 MG/2 ML VIAL IVPB PRN (08:23)
[2018-05-29 10:09] LABS: PLATELET ESTIMATE ADEQUATE
--- NOTE | 2018-05-29 11:39 | PN ---
Progress Note (short form) - Note Progress Note: ID CONSULT DICTATED ACUTE CHOLECYSTITIS FEVER/LEUKOCYTOSIS R/O BILIARY SEPSIS AWAIT C/S WOULD EMPIRICALLY COVER FOR POSSIBLE MDR PATHOGENS IN LIGHT OF PREVIOUS ANTIBIOTIC TREATMENT WITH MEROPENEM/ VANCOMYCIN SURGICAL /GI FOLLOW UP
--- NOTE | 2018-05-29 12:02 | CONS ---
DATE OF CONSULTATION: 05/29/2018 HISTORY: The patient is a 58-year-old male who is evaluated for possible biliary sepsis. He presented to the hospital on May 28, 2018 with worsening right upper quadrant abdominal pain, anorexia, weight loss, and vomiting. He had apparently experienced this pain approximately 1 month ago while in the [place] and was treated with a course of antibiotics. He now returns with worsening right upper quadrant abdominal pain, nonbilious, nonbloody vomiting. An ultrasound of the gallbladder showed cholelithiasis with biliary sludge. An MRI showed a distended gallbladder with diffuse gallbladder wall edema, pericholecystic fluid, and a calculus at the gallbladder neck. There were concerns about possible gangrene or perforation of the gallbladder. His course has been complicated by fever to 103 and an elevated white blood cell count. At the present time, he is awake and alert. He is supine in bed. He is in no acute distress. PAST MEDICAL HISTORY: Negative. ALLERGIES: No known allergies. LABORATORY DATA: White count 15.1 with left shift, hematocrit 38, platelet count 226, creatinine 1.1. Urinalysis less than 1 white cells. Total bilirubin 3.8, alkaline phosphatase 108, AST 57. Blood cultures are pending. Chest x-ray negative for edema infiltrate. PHYSICAL EXAMINATION: General: He is awake and alert. Vital Signs: Temperature 98.5, T-max 103, blood pressure 112/64, pulse 124 and regular, respirations 24 per minute. HEENT: Sclerae mildly icteric. Heart: S1, S2. Lungs: Clear. Abdomen: Positive right upper quadrant tenderness to palpation. Extremities: Negative for edema. IMPRESSION: 1. Acute cholecystitis. 2. Fever, leukocytosis, rule out biliary sepsis. PLAN: Await cultures. In light of previous antibiotic therapy, would cover for possible multidrug-resistant organisms with Meropenem and vancomycin. Surgical and GI follow ups. Thank you for the kind referral. ANGE CARR M.D. [id number]
--- NOTE | 2018-05-29 12:02 | PN ---
Progress Note, Physician History of Present Illness: Pt with acute cholecystitis, possibly on chronic, with leukocytosis and fevers. MRCP last night shows cholecystitis with 1cm stone in neck of gallbladder, irregular fundus, no ductal dilation or intraductal stones, incidental cystic, septated small mass near tail of pancreas (incidental). LFTs are trending down but bilirubin is trending up. WBC was down last night 18 to 14, now 15. Pt is seen and examined in bed, with at bedside. He c/o pain: "I cannot resist this pain anymore." He has been mildly tachy but not hypotensive. ID started Vanco and Meropenem, given previous antibiotic treatment. - Current Medication List Current Medications: Active Medications Meropenem 1 gm/ Dextrose 100 mls @ 200 mls/hr IVPB Q8H-IV DUNIA Last Admin: 05/29/18 08:59 Dose: 200 mls/hr Lactated Ringer's (Lactated Ringers Solution) 1,000 mls @ 200 mls/hr IV ASDIR DUNIA Last Admin: 05/29/18 06:45 Dose: 200 mls/hr Morphine Sulfate (Morphine Sulfate) 2 mg IVPUSH Q3H PRN PRN Reason: PAIN LEVEL 7 - 10 Last Admin: 05/29/18 10:36 Dose: 2 mg Ondansetron HCl (Zofran Injection) 4 mg IVPB Q6H PRN PRN Reason: NAUSEA AND/OR VOMITING Last Admin: 05/29/18 08:59 Dose: 4 mg - Objective Vital Signs: Vital Signs Temperature 98.5 F 05/29/18 10:00 Pulse Rate 104 H 05/29/18 10:00 Respiratory Rate 18 05/29/18 10:00 Blood Pressure 138/73 05/29/18 10:00 O2 Sat by Pulse Oximetry (%) 99 05/29/18 09:00 Constitutional: Yes: Well Nourished, Calm, Mild Distress (pain) Eyes: Yes: Conjunctiva Clear, EOM Intact. No: Sclera Icterus HENT: Yes: Atraumatic, Normocephalic Cardiovascular: Yes: Tachycardia (mild). No: Pulse Irregular Gastrointestinal: Yes: Soft, Tenderness (RUQ and RLQ (little less but marked), minimal epigastric, some guarding, no rebound). No: Distention Extremities: No: Cool, Cyanosis Integumentary: No: Jaundice, Rash Neurological: Yes: Alert, Oriented Labs: CBC, BMP 05/29/18 07:00 05/29/18 07:00 CMP Sodium 138 mmol/L (136-145) 05/29/18 07:00 Potassium 3.6 mmol/L (3.5-5.1) 05/29/18 07:00 Chloride 104 mmol/L (98-107) 05/29/18 07:00 Carbon Dioxide 25 mmol/L (21-32) 05/29/18 07:00 Anion Gap 10 MMOL/L (8-16) 05/29/18 07:00 BUN 11 mg/dL (7-18) 05/29/18 07:00 Creatinine 1.1 mg/dL (0.55-1.3) 05/29/18 07:00 Creat Clearance w eGFR > 60 (>60) 05/29/18 07:00 Random Glucose 96 mg/dL (74-106) 05/29/18 07:00 Calcium 8.6 mg/dL (8.5-10.1) 05/29/18 07:00 Phosphorus 2.3 mg/dL (2.5-4.9) L 05/29/18 07:00 Magnesium 1.6 mg/dL (1.8-2.4) L 05/29/18 07:00 Total Bilirubin 3.8 mg/dL (0.2-1) H 05/29/18 07:00 Direct Bilirubin 1.3 mg/dL (0.0-0.2) H 05/29/18 07:00 AST 57 U/L (15-37) H 05/29/18 07:00 ALT 106 U/L (13-61) H 05/29/18 07:00 Alkaline Phosphatase 108 U/L (45-117) 05/29/18 07:00 Total Protein 5.9 g/dl (6.4-8.2) L 05/29/18 07:00 Albumin 2.9 g/dl (3.4-5.0) L 05/29/18 07:00 Lipase 100 U/L (73-393) 05/29/18 07:00 bili from 2.4 to 3.1 to 3.8 LFTs coming down lipase normal/down Phos and Mg low - ....Imaging MRI: Report Reviewed (see hpi, discussed with Dr. Clark radiologist), Image Reviewed (images reviewed - no apparent intraductal stones) Problem List - Problems (1) Calculus of gallbladder with acute and chronic cholecystitis without obstruction Assessment/Plan: acute cholecystitis, in context of recently treated same, now acute on chronic? with impacted stone in neck per MRI NPO/IVF IV antibiotics per ID MRCP as noted wbc still up, has had fevers hepatitis panel pending, acute negative pain meds prn GI/DVT prophylaxis GI following discussed with Dr. Arrieta - ERCP not indicated, bili elevation likely secondary to sig cholecystitis, as LFTs are low and dropping pt needs cholecystectomy urgently Discussed with patient using [place] phone executive business coach risks, benefits and alternatives of laparoscopic possible open cholecystectomy, including but not limited to bleeding, infection, injury to adjacent structures, bile leak or ductal injury, intraabdominal abscess, incisional hernia, need for further procedures; alternatives include antibiotics, delayed or no surgery - risks of this include cholangitis, gallbladder perforation, sepsis, . Patient desires to proceed with operation - will take to OR today for above. Informed consent signed for same. discussed with Dr. Aguilera Code(s): K80.12 - CALCULUS OF GB W ACUTE AND CHRONIC CHOLECYST W/O OBSTRUCTION (2) RUQ pain Code(s): R10.11 - RIGHT UPPER QUADRANT PAIN (3) Elevated LFTs Code(s): R94.5 - ABNORMAL RESULTS OF LIVER FUNCTION STUDIES (4) Hyperbilirubinemia Code(s): E80.6 - OTHER DISORDERS OF BILIRUBIN METABOLISM (5) Nausea & vomiting Code(s): R11.2 - NAUSEA WITH VOMITING, UNSPECIFIED Qualifiers: Vomiting type: unspecified Vomiting Intractability: non-intractable Qualified Code(s): R11.2 - Nausea with vomiting, unspecified
[2018-05-29] MEDS ORDERED: BUPIVACAINE HCL/PF 0.5% (5MG/ML) 10 ML VIAL ONE (14:20)
[2018-05-29] MEDS ORDERED: LIDOCAINE HCL 2% 100 MG/5 ML DISP.SYRIN ONE (14:47)
[2018-05-29] MEDS ORDERED: PROPOFOL 20 ML ONE (14:47)
[2018-05-29] MEDS ORDERED: SUCCINYLCHOLINE CHLORIDE 200 MG/10 ML VIAL ONE (14:47)
[2018-05-29] MEDS ORDERED: fentaNYL CITRATE 250 MCG/5 ML VIAL ONE (14:47)
[2018-05-29] MEDS ORDERED: ROCURONIUM BROMIDE 50 MG/5 ML VIAL ONE (15:01)
[2018-05-29] MEDS ORDERED: PHENYLEPHRINE HCL 10 MG/1 ML SINGLE DOSE VIAL ONE (15:07)
[2018-05-29] MEDS ORDERED: BUPIVACAINE HCL/PF (5 MG/ML) 30 ML VIAL IJ ONE ×2 (15:29→16:37)
[2018-05-29] MEDS ORDERED: ONDANSETRON 4 MG/2 ML VIAL IVPUSH PRN (15:44)
[2018-05-29] MEDS ORDERED: LACTATED RINGERS SOLUTION 1,000 ML IV SCH (15:45)
[2018-05-29] MEDS ORDERED: BENZOIN TINCTURE SWABSTICK TP ONE (15:58)
[2018-05-29] MEDS ORDERED: DEXAMETHASONE SOD PHOSPHATE 4 MG/1 ML VIAL ONE (16:32)
[2018-05-29] MEDS ORDERED: NEOSTIGMINE METHYLSULFATE 0.5 MG/ML - 10 ML MDV ONE (16:36)
[2018-05-29] MEDS ORDERED: GLYCOPYRROLATE 0.2 MG/1 ML VIAL ONE (16:37)
--- NOTE | 2018-05-29 17:04 | OP ---
Operative Note - Note: Operative Date: 05/29/18 Pre-Operative Diagnosis: acute cholecystitis Operation: laparoscopic cholecystectomy Findings: perforated gallbladder with bile staining of upper abdomen, dense omental adhesions over gallbladder, purulence in gb and necrotic gallbladder mucosa; multiple small stones, cystic duct and artery clearly identified/clipped/cut, small piece of back wall of fundus left on liver bed, cauterized; gb inspected on back table, defect at fundus and additional hole more proximally; field irrigated and suctioned of all visible blood/bile/fluid, few small visible stones retrieved Post-Operative Diagnosis: Other (gangrenous, perforated cholecystitis) Surgeon: Glen Chávez Tumbler Machine Operator: Luke Sherman Anesthesiologist/MASON FOREMAN/SUPERINTENDANT: Harry Martinez Anesthesia: General, Local (10ml 0.5% marcaine) Specimens Removed: gallbladder with stone to pathology Estimated Blood Loss (mls): 30 Fluid Volume Replaced (mls): 1,700 (crystalloid) Operative Report Dictated: Yes
[2018-05-29] MEDS: HYDROmorphone HCl 2 MG/ML VIAL IVPUSH PRN ×4 (17:05→17:35)
[2018-05-29] MEDS ORDERED: HYDROmorphone HCl 2 MG/ML VIAL ONE (17:05)
[2018-05-29] MEDS ORDERED: ACETAMINOPHEN INJECTION 100 ML IVPB ONE (17:08)
[2018-05-29] MEDS ORDERED: oxyCODONE HCL 5 MG TABLET PO PRN ×2 (17:10→17:16)
[2018-05-29] MEDS ORDERED: MEROPENEM 1 GM VIAL (RESTRICTED TO ID) IVPB ONE ×2 (17:52→18:00)
[2018-05-30] MEDS ORDERED: ACETAMINOPHEN 325 MG TABLET (FP) PO SCH
[2018-05-30] MEDS: ACETAMINOPHEN 325 MG TABLET (FP) PO SCH ×4 (00:18→17:54)
[2018-05-30] MEDS: LACTATED RINGERS SOLUTION 1,000 ML IV SCH ×2 (00:26→15:17)
[2018-05-30] MEDS: MEROPENEM 1 GM in DEXTROSE 5%-WATER 100 ML IVPB SCH ×3 (02:45→17:54)
--- NOTE | 2018-05-30 07:26 | PN ---
Progress Note, Physician Chief Complaint: S/P LAP MIESHA POD 1 - DOING OK - Current Medication List Current Medications: Active Medications Acetaminophen (Tylenol -) 650 mg PO Q6H [facility] Last Admin: 05/30/18 06:11 Dose: 650 mg Lactated Ringer's (Lactated Ringers Solution) 1,000 mls @ 125 mls/hr IV ASDIR [facility] Last Admin: 05/30/18 00:26 Dose: 125 mls/hr Meropenem 1 gm/ Dextrose 100 mls @ 200 mls/hr IVPB Q8H-IV [facility] Last Admin: 05/30/18 02:45 Dose: 200 mls/hr Ibuprofen (Motrin -) 400 mg PO Q6H [facility] Morphine Sulfate (Morphine Sulfate) 2 mg IVPUSH Q3H PRN PRN Reason: Pain Level 7 - 10 BREAKTHROUGH Oxycodone HCl (Roxicodone -) 5 mg PO Q6H PRN PRN Reason: Pain Level 7 - 10 BRKTHRU 1ST - Objective Vital Signs: Vital Signs Temperature 98.6 F 05/30/18 05:42 Pulse Rate 84 05/30/18 05:42 Respiratory Rate 20 05/30/18 05:42 Blood Pressure 106/72 05/30/18 05:42 O2 Sat by Pulse Oximetry (%) 98 05/29/18 21:00 Constitutional: Yes: Well Nourished, No Distress, Calm Eyes: Yes: WNL, Conjunctiva Clear HENT: Yes: WNL Neck: Yes: WNL, Supple Cardiovascular: Yes: WNL, Regular Rate and Rhythm Respiratory: Yes: WNL, Regular, CTA Bilaterally Gastrointestinal: Yes: WNL, Other (POST SURGICAL TENDERNESS , NO REBOUND OR GUARDING) Extremities: Yes: WNL Edema: No Labs: CBC, BMP 05/29/18 07:00 05/29/18 07:00 INR, PTT INR 1.27 (0.83-1.09) H 05/28/18 11:00 Problem List - Problems (1) Abdominal pain Code(s): R10.9 - UNSPECIFIED ABDOMINAL PAIN (2) Cholecystitis Assessment/Plan: - ABX - CLEAR LIQUID DIET PER SURGERY - AM LABS Code(s): K81.9 - CHOLECYSTITIS, UNSPECIFIED (3) Elevated LFTs Code(s): R94.5 - ABNORMAL RESULTS OF LIVER FUNCTION STUDIES (4) Nausea & vomiting Code(s): R11.2 - NAUSEA WITH VOMITING, UNSPECIFIED Qualifiers: Vomiting type: unspecified Vomiting Intractability: non-intractable Qualified Code(s): R11.2 - Nausea with vomiting, unspecified
[2018-05-30 08:17] LABS: BASO % 0.1 % (0-2.0); HEMATOCRIT 33.7 % (35.4-49); HEMOGLOBIN 11.6 GM/dL (11.7-16.9); LYMPH % 3.3 % (8-40); MCH 27.7 pg (25.7-33.7); MCHC 34.3 g/dl (32.0-35.9); MEAN CELL VOLUME 80.7 fl (80-96); MEAN PLT VOLUME 9.7 fl (7.5-11.1); MONO % 3.2 % (3.8-10.2); NEUT % 93.4 % (42.8-82.8); PLATELET COUNT 187 K/MM3 (134-434); RBC 4.18 M/mm3 (4.00-5.60); RDW 13.8 % (11.9-15.9); WHITE BLOOD COUNT 16.2 K/mm3 (4.0-10.0)
[2018-05-30 08:42] LABS: ALBUMIN 2.2 g/dl (3.4-5.0); ALK PHOS 85 U/L (45-117); ANION GAP 8 MMOL/L (8-16); BILIRUBIN,TOTAL 1.9 mg/dL (0.2-1); BLOOD UREA NITROGEN 13 mg/dL (7-18); CALCIUM 8.5 mg/dL (8.5-10.1); CHLORIDE 105 mmol/L (98-107); CO2 27 mmol/L (21-32); CREATININE 0.9 mg/dL (0.55-1.3); GLUCOSE,RANDOM 116 mg/dL (74-106); SGOT/AST 44 U/L (15-37); SGPT/ALT 92 U/L (13-61); SODIUM 140 mmol/L (136-145); TOT PROT 5.2 g/dl (6.4-8.2)
--- NOTE | 2018-05-30 08:52 | PN ---
Progress Note (short form) - Note Progress Note: Anesthesia post op Pt seen and examined S:Alert and awake O: Vital Signs Temperature 98.6 F 05/30/18 05:42 Pulse Rate 84 05/30/18 05:42 Respiratory Rate 20 05/30/18 05:42 Blood Pressure 106/72 05/30/18 05:42 O2 Sat by Pulse Oximetry (%) 98 05/29/18 21:00 CBC, BMP 05/30/18 07:00 05/30/18 07:00 A/P: Current Active Problems Abdominal pain (Acute) Calculus of gallbladder with acute and chronic cholecystitis without obstruction (Acute) Cholecystitis (Acute) Elevated LFTs (Acute) Hyperbilirubinemia (Acute) Nausea & vomiting (Acute) RUQ pain (Acute) Vomiting (Acute) s/p Lap parul Doing well post op Continue current care Anibal Cast MD
[2018-05-30] MEDS ORDERED: IBUPROFEN 400 MG TABLET (FP) PO SCH (09:00)
[2018-05-30] MEDS: IBUPROFEN 400 MG TABLET (FP) PO SCH ×3 (09:23→21:28)
--- NOTE | 2018-05-30 10:23 | PN ---
Physical Exam: SUBJECTIVE: Patient seen and examined at bedside. No acute events overnight. OBJECTIVE: Vital Signs Temperature 98.1 F 05/30/18 09:53 Pulse Rate 80 05/30/18 09:53 Respiratory Rate 20 05/30/18 09:53 Blood Pressure 110/70 05/30/18 09:53 O2 Sat by Pulse Oximetry (%) 98 05/29/18 21:00 GENERAL: Frisian-speaking male. AAOx3. Resting comfortably in bed. HEENT: AT/NC. EOMI. KENDALL. Moist mucus membranes. NECK: Trachea midline, full range of motion, supple. LUNGS: CTA B/L. No wheezes noted. HEART: Regular rate and rhythm, S1, S2 without murmur, rub or gallop. ABDOMEN: Soft, nontender, nondistended, normoactive bowel sounds, no guarding, no rebound, no hepatosplenomegaly, no masses. EXTREMITIES: 2+ pulses, warm, well-perfused, no edema. NEUROLOGICAL: Cranial nerves II through XII grossly intact. Normal speech, gait not observed. PSYCH: Normal mood, normal affect. SKIN: Warm, dry, normal turgor, no rashes or lesions noted CBC, BMP 05/30/18 07:00 05/30/18 07:00 Active Medications Acetaminophen (Tylenol -) 650 mg PO Q6H [facility] Last Admin: 05/30/18 06:11 Dose: 650 mg Lactated Ringer's (Lactated Ringers Solution) 1,000 mls @ 125 mls/hr IV ASDIR [facility] Last Admin: 05/30/18 00:26 Dose: 125 mls/hr Meropenem 1 gm/ Dextrose 100 mls @ 200 mls/hr IVPB Q8H-IV [facility] Last Admin: 05/30/18 09:24 Dose: 200 mls/hr Ibuprofen (Motrin -) 400 mg PO Q6H [facility] Last Admin: 05/30/18 09:23 Dose: 400 mg Morphine Sulfate (Morphine Sulfate) 2 mg IVPUSH Q3H PRN PRN Reason: Pain Level 7 - 10 BREAKTHROUGH Oxycodone HCl (Roxicodone -) 5 mg PO Q6H PRN PRN Reason: Pain Level 7 - 10 BRKTHRU 1ST ASSESSMENT/PLAN: 58M w/ no significant pmhx presented to the hospital with abdominal pain, now s/ p lap parul, POD #1 found to have perforated, gangrenous and necrotic GB. #Acute cholecystitis; s/p lap parul (05/29), POD#1 -Per op note, pt had perf GB, necrotic and gangrenous -Meropenem 1 gm IVPB Q8H -Morphine 2 mg IVP Q3H, Oxycodone 5 mg PO Q6H, Tylenol 650 mg PO Q8H, Motrin 400 mg PO Q6H for pain -IS/OOB -Per surg, will advance to low-fat diet and stop IVF after dinner; continue antibiotics per ID at least until afebrile, normal wbc and LFTs -BCx neg x24h, UCx neg #Prophylaxis -early ambulation as tolerated -SCDs #FEN -LR @ 125 -recheck lytes in AM -CLD, adv as tolerated dispo -full code -cont to monitor on med-surg Visit type - Emergency Visit Emergency Visit: Yes ED Registration Date: 05/28/18 Care time: The patient presented to the Emergency Department on the above date and was hospitalized for further evaluation of their emergent condition. - New Patient This patient is new to me today: Yes Date on this admission: 05/30/18 - Critical Care Critical Care patient: No
[2018-05-30 10:25] LABS: ANISOCYTOSIS 1+; MACROCYTOSIS 0; PLATELET ESTIMATE NORMAL
--- NOTE | 2018-05-30 11:35 | OP ---
DATE OF OPERATION: 05/29/2018 PREOPERATIVE DIAGNOSIS: Acute cholecystitis. POSTOPERATIVE DIAGNOSIS: Gangrenous and perforated cholecystitis. SURGEON: Glen Chávez MD MARINE EQUIPMENT SALES ENGINEER: Luke Sherman MD ANESTHESIA: General endotracheal and local, 10 mL of 0.5% Marcaine. ESTIMATED BLOOD LOSS: 30 mL. FLUIDS: 1700 mL of crystalloid. SPECIMEN: Gallbladder with stone to pathology. FINDINGS: Perforated gallbladder with bile staining of the upper abdomen. Dense omental adhesions over the gallbladder. Purulence in the gallbladder and necrotic gallbladder mucosa. Multiple small stones. Cystic duct and artery were clearly identified, clipped, and cut. A small piece of the back wall of the gallbladder fundus was left in the liver bed and cauterized. Field irrigated and suctioned of all visible blood, bile, and fluid. A few small stones were retrieved. The gallbladder was inspected on the back table and noted to have a defect at the fundus and a small additional hole more proximally. DISPOSITION: Stable and extubated to PACU. INDICATIONS FOR PROCEDURE: The patient is a 58-year-old [facility] with no significant medical history, surgical history significant for bilateral inguinal hernia repairs and right rotator cuff surgery, who was recently in the [facility] from May 06 to May 15. While there, experienced right upper quadrant pain, nausea, vomiting, fatigue, and weakness. Was seen and diagnosed with cholecystitis by ultrasound and treated with antibiotics, including ceftriaxone and gentamicin. He also may have had a UTI that was treated. He states he had finished all the medications from there and returned to [facility] approximately 2 weeks ago. Chemistries from that time are not available, but laboratory work did show his white count down from 23 to 9000. Since his return to [facility], he had been eating okay and not vomiting, but the night before presentation to the emergency room and into the general accountant, he developed chills, colicky right upper quadrant pain, more nausea and vomiting, and subjective fever and he had gone to his primary medical care doctor, who sent him to the emergency room, where his white count was 18,000. He was initially afebrile, but then developed a temperature of 103 with elevated liver function tests and a bilirubin of 2.4 and normal lipase. An ultrasound showed small stones and sludge in the gallbladder without overt signs of cholecystitis. MRCP was then done, showing clear acute cholecystitis with a 1-cm stone in the neck of the gallbladder as well as an irregular fundus suggestive of either focal abscess or perforation and an incidental small cystic polyseptated mass in the pancreas near the tail with no biliary ductal dilation or intraductal stones identified. His bilirubin satish from 2.4 to 3.1 to 3.4, but all of his other LFTs decreased almost into the normal range and were never over approximately 200. He has been seen by GI and deemed not to need ERCP, but having been seen again this morning, has even more pain and tenderness in the right upper quadrant, has had a fever overnight again of 103, has been still somewhat tachycardic, and is clearly in need of cholecystectomy. Risks, benefits, and alternatives of laparoscopic, possible open cholecystectomy were discussed with the patient, including, but not limited to, bleeding, infection, injury to adjacent structures, bile leak or ductal injury, intraabdominal abscess, incisional hernia, and need for further procedures, and alternatives, which he has already been using, including antibiotics and delayed or no surgery with attendant risks of cholangitis, gallbladder perforation if it has not already occurred, sepsis, and . The patient is agreeable to the operation and signed informed consent for the same. This was done using a Sinhala phone plastic surgery manager and he is brought emergently to the OR for this procedure. OPERATIVE TECHNIQUE: The patient was brought to the operating room and placed on the operating room table in supine position. Sequential compression devices were applied to bilateral lower extremities and, as the patient had been switched by the infectious disease doctors to meropenem on the floor last night, he has had 3 doses and does not need additional antibiotics at the time of surgery, although his scheduled meropenem is continued postoperatively. He also had a dose of vancomycin once this morning. After induction and intubation by Anesthesia, the abdomen was clipped of hair, prepped, and draped in sterile fashion and a small supraumbilical midline incision was made with a scalpel and carried into subcutaneous tissues with electrocautery until the abdominal wall fascia was identified, scored, and elevated with Marisol clamps. The peritoneum was entered bluntly with the tip of a clamp and a fingertip inserted to ensure entry into the abdominal cavity and the absence of any underlying adhesions. It was noted at that time that there appeared to be some yellow staining on the tissues, raising suspicion for gallbladder perforation. A stay suture of 0 Vicryl in [id number] fashion was placed in the fascia for later closure and a Carlos trocar introduced directly into the abdominal cavity and secured in place with the balloon. The abdomen was insufflated with carbon dioxide. The patient was placed in reverse Trendelenburg position with the right side slightly up. The laparoscope was inserted to inspect the abdominal cavity, at which point it was immediately noted that there were significant omental adhesions overlying the gallbladder and to the edge of the liver as well as to the upper abdomen, precluding initial placement of the subxiphoid port. An initial 5-mm port was then placed under direct vision in the right lateral abdomen, through which a grasper was introduced and used to begin bluntly taking down some of the omental adhesions to the anterior abdominal wall and around the liver. This was accomplished enough to be able to insert the 5-mm subxiphoid port, also under direct vision, and introduced a grasper through this site as well. The graspers were used, again, to gently and bluntly take down the omental adhesions from over the liver and begin taking down the omentum from over the gallbladder area at the edge of the liver. At one point, as the omentum was manipulated away from the edge of the liver and what was thought to be the gallbladder underneath, there was extrusion of some purulent bilious material. Of note, also, on first entry into the abdominal cavity, it was obvious that there was bile staining all over the right upper quadrant and upper abdomen of the tissues, again, indicating likely gallbladder perforation. Once these purulent bile secretions were encountered, suction/manager of security was also hooked up and used to suction the field of blood that was oozing from the taking down of the adhesions as well as the contents of the gallbladder. This was assumed to be a hole into the gallbladder itself. Initially, it was not clear whether we would be able to identify enough of the gallbladder to perform the operation laparoscopically, but with some persistence at taking down the omental adhesions once the surface of the gallbladder had been identified by entering it, we were, in fact, able to identify the body of the gallbladder, grasped the fundus of the gallbladder at the area where it had been entered to be sucked out with a grasper, and free the omentum from the gallbladder all the way down to the base. Tissues were quite oozy, as the area was quite inflamed. The suction/manager of security was used frequently to suction out the field, although irrigation was not yet undertaken. Dissection of the base of the gallbladder was begun initially and briefly with the blunt tip of the suction/manager of security tool and then continued with the [place] dissector in an attempt to identify the cystic duct and artery. The lymph node of Calot was visible at the medial aspect at the lateral portion. The cystic duct was actually dissected out of the fatty tissues and clearly noted to be the only structure directly entering the gallbladder sac itself. This was then clipped 2 proximally and 1 distally with 5-mm Endoclips and divided with endoscissors. A small bit of connective tissue just behind that was also clipped 2 proximally and 1 distally and divided, as it was not yet clear where the artery was to be located. This was not, however, a vascular structure and dissection continued just behind the lymph node of Calot in an attempt to identify the cystic artery. Dissection was performed with the [place] dissector both from the [id number]-[id number] approach. The camera had been switched early on from a zero to a 30-degree 5-mm scope, which facilitated visualization, and a second 5-mm port had also been placed in the right upper quadrant under direct vision, through which a 2nd grasper was used to grasp the infundibulum of the gallbladder and manipulate it to assist in this process. Ultimately, the cystic artery was identifiable just behind the lymph node. It was dissected out, clipped 2 proximally and 1 distally, and divided with endoscissors. Again, the suction/manager of security was used to suction the field frequently in an attempt to maintain visibility. At this point, the gallbladder, again, had been entered at least twice and suctioned clear of most of the purulent bilious contents and some small stones, a few of which had spilled into the field and were both suctioned up as we went and later retrieved with a grasper. The hook cautery was then used to continue taking the gallbladder itself off of the liver bed, working from the base toward the fundus, although the upper planes were not as clear and we had already entered the gallbladder again to suction the draining contents as the dissection proceeded toward the fundus and the upper grasper became clear that we were likely leaving a small portion of the back wall on the liver bed. We did not attempt to completely remove every bit of this back wall, but took as much of the gallbladder as could easily be dissected until the gallbladder itself had been completely freed from the liver edge. This was then placed in an EndoCatch bag and retrieved out the umbilical port site and left on the back table to be inspected before being passed off for pathology specimen. With the Carlos trocar and pneumoperitoneum reestablished, the field was reinspected for hemostasis and the coagulation on the cautery turned up to 50. The hook cautery was then used to completely cauterize the back wall of the gallbladder that had been left on the liver bed in the upper portion as well as to achieve hemostasis where necessary. The suction/manager of security tool, at this point, was used to both irrigate and suction the field clear of fluid, blood, and bile. A couple of small stones were identified again and retrieved with graspers that were not able to be suctioned with the tool. There was no active bleeding noted. The area above and below the liver was suctioned several times and no additional accumulation of fluid was visualized; thus, patient was returned to neutral position and the 5-mm ports were all removed under direct vision and then the Carlos port and camera were removed from the abdominal cavity and the abdomen exsufflated of carbon dioxide. The stay suture at the umbilicus was tied to close the fascia there. Port sites were irrigated with saline solution, infiltrated with local anesthetic, and closed with 4-0 Vicryl subcuticular sutures, including a running at the umbilicus. Hemostasis was achieved first in the port sites with electrocautery as necessary. Benzoin and Steri-Strips were then applied to each incision and they were covered with dressings of gauze and Tegaderm. Counts were correct at the end of the procedure. The patient was then awakened and extubated by Anesthesia and was able to move back to a stretcher and was taken to the recovery room in stable condition, having tolerated the procedure well. The gallbladder was then inspected on the back table before being passed off for pathology; noted to have a small defect in the fundal area and another small hole a little more proximal. The clips appeared to be immediately adjacent to the gallbladder itself. There were no structures extending from it that suggested anything other than cystic duct and artery had been clipped. It was then passed off with a single stone as a specimen for pathologic examination. Dr. Sherman was an essential sourcing assistant throughout this procedure, including facilitating entry into the abdominal cavity, assisting with clearing the adhesions from the right upper quadrant in order to introduce the ports, retraction and manipulation of the gallbladder throughout the case, retrieval of the gallbladder, and retraction for hemostasis in the field as well as assisting with local infiltration and closure of the wounds. Glen Chávez M.D. HUSAM/[id number]
--- NOTE | 2018-05-30 14:46 | PN ---
Progress Note, Physician History of Present Illness: Pt s/p lap parul for acute cholecystitis with findings of perforated, gangrenous cholecystitis. Seen and examined in bed, awake, feeling well. He has ambulated, voided, tolerating clears, no flatus yet. Pain is controlled with alternating Tylenol and ibuprofen, 05/20 now. Family is not present at this time. - Current Medication List Current Medications: Active Medications Acetaminophen (Tylenol -) 650 mg PO Q6H [facility] Last Admin: 05/30/18 12:03 Dose: 650 mg Meropenem 1 gm/ Dextrose 100 mls @ 200 mls/hr IVPB Q8H-IV [facility] Last Admin: 05/30/18 09:24 Dose: 200 mls/hr Lactated Ringer's (Lactated Ringers Solution) 1,000 mls @ 50 mls/hr IV ASDIR DUNIA Ibuprofen (Motrin -) 400 mg PO Q6H [facility] Last Admin: 05/30/18 09:23 Dose: 400 mg Oxycodone HCl (Roxicodone -) 5 mg PO Q6H PRN PRN Reason: Pain Level 7 - 10 BRKTHRU 1ST - Objective Vital Signs: Vital Signs Temperature 98.1 F 05/30/18 09:53 Pulse Rate 80 05/30/18 09:53 Respiratory Rate 20 05/30/18 09:53 Blood Pressure 110/70 05/30/18 09:53 O2 Sat by Pulse Oximetry (%) 99 05/30/18 09:00 Vital Signs Period Temp Pulse Resp BP Sys/Mackenzie Pulse Ox Last 24 Hr 97.7 F-99.9 F 77-108 18-20 100-125/61-78 96-100 Constitutional: Yes: Well Nourished, No Distress, Calm Eyes: Yes: Conjunctiva Clear, EOM Intact. No: Sclera Icterus HENT: Yes: Atraumatic, Normocephalic Gastrointestinal: Yes: Soft, Distention (mild), Tenderness (minimal RUQ, RLQ, epigastric, incisional (more at umbilicus)) Extremities: No: Cool, Cyanosis Integumentary: Yes: Incision (x4 dressed). No: Jaundice, Rash Wound/Incision: Yes: Dressing Dry and Intact (x4). No: Dressing Removed Neurological: Yes: Alert, Oriented Labs: CBC, BMP 05/30/18 07:00 05/30/18 07:00 CMP Sodium 140 mmol/L (136-145) 05/30/18 07:00 Potassium 4.0 mmol/L (3.5-5.1) 05/30/18 07:00 Chloride 105 mmol/L (98-107) 05/30/18 07:00 Carbon Dioxide 27 mmol/L (21-32) 05/30/18 07:00 Anion Gap 8 MMOL/L (8-16) 05/30/18 07:00 BUN 13 mg/dL (7-18) 05/30/18 07:00 Creatinine 0.9 mg/dL (0.55-1.3) 05/30/18 07:00 Creat Clearance w eGFR > 60 (>60) 05/30/18 07:00 Random Glucose 116 mg/dL (74-106) H 05/30/18 07:00 Calcium 8.5 mg/dL (8.5-10.1) 05/30/18 07:00 Phosphorus 2.3 mg/dL (2.5-4.9) L 05/29/18 07:00 Magnesium 1.6 mg/dL (1.8-2.4) L 05/29/18 07:00 Total Bilirubin 1.9 mg/dL (0.2-1) H 05/30/18 07:00 Direct Bilirubin 1.3 mg/dL (0.0-0.2) H 05/29/18 07:00 AST 44 U/L (15-37) H 05/30/18 07:00 ALT 92 U/L (13-61) H 05/30/18 07:00 Alkaline Phosphatase 85 U/L (45-117) 05/30/18 07:00 Total Protein 5.2 g/dl (6.4-8.2) L 05/30/18 07:00 Albumin 2.2 g/dl (3.4-5.0) L 05/30/18 07:00 Lipase 100 U/L (73-393) 05/29/18 07:00 bili down, LFTs down almost all normal wbc up a little postop hydration/renal status improved Problem List - Problems (1) Calculus of gallbladder with acute and chronic cholecystitis without obstruction Assessment/Plan: POD1 s/p laparoscopic cholecystectomy for acute perforated, gangrenous cholecystitis small bit of fundal back wall left and cauterized, duct and artery clipped f/u pathology pt feeling much better, pain controlled with oral nonnarcotics voiding, ambulating, tolerating clears will advance to low-fat diet and stop IVF after dinner continue antibiotics per ID at least until afebrile, normal wbc and LFTs ? if will need to complete course of po abx on d/c trend labs encouraged OOB, ambulation as able following with you Code(s): K80.12 - CALCULUS OF GB W ACUTE AND CHRONIC CHOLECYST W/O OBSTRUCTION (2) RUQ pain Code(s): R10.11 - RIGHT UPPER QUADRANT PAIN (3) Elevated LFTs Code(s): R94.5 - ABNORMAL RESULTS OF LIVER FUNCTION STUDIES (4) Hyperbilirubinemia Code(s): E80.6 - OTHER DISORDERS OF BILIRUBIN METABOLISM (5) Nausea & vomiting Assessment/Plan: resolved Code(s): R11.2 - NAUSEA WITH VOMITING, UNSPECIFIED Qualifiers: Vomiting type: unspecified Vomiting Intractability: non-intractable Qualified Code(s): R11.2 - Nausea with vomiting, unspecified
--- NOTE | 2018-05-30 15:19 | PN ---
Teaching Attending Note Name of Resident: Silvana Hernandez ATTENDING PHYSICIAN STATEMENT I saw and evaluated the patient. I reviewed the resident's note and discussed the case with the resident. I agree with the resident's findings and plan as documented. SUBJECTIVE: OBJECTIVE: ASSESSMENT AND PLAN: Acute cholecystitis; s/p lap parul (05/29), POD#1 -Per op note, pt had perf GB, necrotic and gangrenous -Meropenem 1 gm IVPB Q8H -Morphine 2 mg IVP Q3H, Oxycodone 5 mg PO Q6H, Tylenol 650 mg PO Q8H, Motrin 400 mg PO Q6H for pain #Prophylaxis #FEN -LR @ 125 -recheck lytes in AM -CLD
[2018-05-31] MEDS: ACETAMINOPHEN 325 MG TABLET (FP) PO SCH ×4 (00:04→18:24)
[2018-05-31] MEDS ORDERED: PT OWN MED DRAWER 7, Y5N ONE ×2 (01:52→09:18)
[2018-05-31] MEDS: MEROPENEM 1 GM in DEXTROSE 5%-WATER 100 ML IVPB SCH ×3 (02:13→18:23)
[2018-05-31] MEDS: IBUPROFEN 400 MG TABLET (FP) PO SCH ×4 (02:19→21:30)
--- NOTE | 2018-05-31 07:45 | PN ---
Progress Note, Physician Chief Complaint: S/P LAP MIESHA POD 2- LESS PAIN TODAY - STATES SCALE A "1" IN SEVERITY ; TOLERATING SOME PO DIET - Current Medication List Current Medications: Active Medications Acetaminophen (Tylenol -) 650 mg PO Q6H [facility] Last Admin: 05/31/18 05:43 Dose: 650 mg Meropenem 1 gm/ Dextrose 100 mls @ 200 mls/hr IVPB Q8H-IV [facility] Last Admin: 05/31/18 02:13 Dose: 200 mls/hr Lactated Ringer's (Lactated Ringers Solution) 1,000 mls @ 50 mls/hr IV ASDIR [facility] Last Admin: 05/30/18 15:17 Dose: 50 mls/hr Ibuprofen (Motrin -) 400 mg PO Q6H [facility] Last Admin: 05/31/18 02:19 Dose: 400 mg Oxycodone HCl (Roxicodone -) 5 mg PO Q6H PRN PRN Reason: Pain Level 7 - 10 BRKTHRU 1ST - Objective Vital Signs: Vital Signs Temperature 98.4 F 05/31/18 06:00 Pulse Rate 80 05/31/18 06:00 Respiratory Rate 20 05/31/18 06:00 Blood Pressure 106/70 05/31/18 06:00 O2 Sat by Pulse Oximetry (%) 99 05/30/18 21:00 Constitutional: Yes: Well Nourished, No Distress, Calm Eyes: Yes: WNL HENT: Yes: WNL Neck: Yes: WNL Cardiovascular: Yes: WNL, Regular Rate and Rhythm Respiratory: Yes: WNL, Regular, CTA Bilaterally Gastrointestinal: Yes: WNL, Normal Bowel Sounds, Other (POST SURGICAL TEMDERNESS ; NO REBOUND OR GUARDING , BS PRESENT) Extremities: Yes: WNL Edema: No Labs: INR, PTT INR 1.27 (0.83-1.09) H 05/28/18 11:00 Problem List - Problems (1) Abdominal pain Code(s): R10.9 - UNSPECIFIED ABDOMINAL PAIN (2) Cholecystitis Assessment/Plan: - ABX -MEROPENEM PER ID - DIET PER SURGERY - F/U PATH Code(s): K81.9 - CHOLECYSTITIS, UNSPECIFIED (3) Elevated LFTs Code(s): R94.5 - ABNORMAL RESULTS OF LIVER FUNCTION STUDIES (4) Nausea & vomiting Code(s): R11.2 - NAUSEA WITH VOMITING, UNSPECIFIED Qualifiers: Vomiting type: unspecified Vomiting Intractability: non-intractable Qualified Code(s): R11.2 - Nausea with vomiting, unspecified
[2018-05-31 08:01] LABS: BASO % 0.3 % (0-2.0); EOS % 1.4 % (0-4.5); HEMATOCRIT 33.7 % (35.4-49); HEMOGLOBIN 11.3 GM/dL (11.7-16.9); LYMPH % 8.3 % (8-40); MCH 27.3 pg (25.7-33.7); MCHC 33.6 g/dl (32.0-35.9); MEAN CELL VOLUME 81.1 fl (80-96); MEAN PLT VOLUME 10.2 fl (7.5-11.1); MONO % 4.2 % (3.8-10.2); NEUT % 85.8 % (42.8-82.8); PLATELET COUNT 190 K/MM3 (134-434); RBC 4.16 M/mm3 (4.00-5.60); RDW 13.7 % (11.9-15.9); WHITE BLOOD COUNT 11.6 K/mm3 (4.0-10.0)
[2018-05-31 08:32] LABS: ALBUMIN 2.2 g/dl (3.4-5.0); ALK PHOS 81 U/L (45-117); ANION GAP 6 MMOL/L (8-16); BILIRUBIN,TOTAL 0.9 mg/dL (0.2-1); BLOOD UREA NITROGEN 16 mg/dL (7-18); CALCIUM 8.4 mg/dL (8.5-10.1); CHLORIDE 103 mmol/L (98-107); CO2 29 mmol/L (21-32); CREATININE 0.9 mg/dL (0.55-1.3); GLUCOSE,RANDOM 87 mg/dL (74-106); POTASSIUM 3.6 mmol/L (3.5-5.1); SGOT/AST 23 U/L (15-37); SGPT/ALT 68 U/L (13-61); SODIUM 138 mmol/L (136-145); TOT PROT 5.2 g/dl (6.4-8.2)
--- NOTE | 2018-05-31 09:13 | PN ---
Progress Note, Physician Chief Complaint: c/o mild pain tolerating PO History of Present Illness: Present with abd pain with acute cholycystitis s/p cholycystectomy - Current Medication List Current Medications: Active Medications Acetaminophen (Tylenol -) 650 mg PO Q6H [facility] Last Admin: 05/31/18 05:43 Dose: 650 mg Meropenem 1 gm/ Dextrose 100 mls @ 200 mls/hr IVPB Q8H-IV [facility] Last Admin: 05/31/18 02:13 Dose: 200 mls/hr Lactated Ringer's (Lactated Ringers Solution) 1,000 mls @ 50 mls/hr IV ASDIR [facility] Last Admin: 05/30/18 15:17 Dose: 50 mls/hr Ibuprofen (Motrin -) 400 mg PO Q6H [facility] Last Admin: 05/31/18 02:19 Dose: 400 mg Oxycodone HCl (Roxicodone -) 5 mg PO Q6H PRN PRN Reason: Pain Level 7 - 10 BRKTHRU 1ST - Objective Vital Signs: Vital Signs Temperature 98.4 F 05/31/18 06:00 Pulse Rate 80 05/31/18 06:00 Respiratory Rate 20 05/31/18 06:00 Blood Pressure 106/70 05/31/18 06:00 O2 Sat by Pulse Oximetry (%) 99 05/30/18 21:00 Middle aged man not in distress HEENT: Mm moist, no anemia, PERRLA EOMI NECK: No JVd No Bruit CHEST: CTA B/L CVS; S1S2 R no m/g/r ABD: S/P Cholycystectomy mild tenderness r Bs + EXT; No edema, no calf tenderness MULTIMEDIA PROGRAMMER: AOx3 non focal Labs: CBC, BMP 05/31/18 07:00 05/31/18 07:00 INR, PTT INR 1.27 (0.83-1.09) H 05/28/18 11:00 Problem List - Problems (1) Calculus of gallbladder with acute and chronic cholecystitis without obstruction Assessment/Plan: Oprtated on 05/29 improving will F/U surgery recommendations Code(s): K80.12 - CALCULUS OF GB W ACUTE AND CHRONIC CHOLECYST W/O OBSTRUCTION (2) Elevated LFTs Assessment/Plan: Due to acute cholycystitis Code(s): R94.5 - ABNORMAL RESULTS OF LIVER FUNCTION STUDIES (3) Abdominal pain Assessment/Plan: Improved Code(s): R10.9 - UNSPECIFIED ABDOMINAL PAIN
--- NOTE | 2018-05-31 14:01 | PN ---
Progress Note, Physician History of Present Illness: Pt s/p lap parul for acute cholecystitis with findings of perforated, gangrenous cholecystitis. Seen and examined in bed, awake, feeling well. He is ambulating, voiding, tolerating diet, has had multiple BMs, loose. Pain is controlled with alternating Tylenol and ibuprofen, 05/20 now. Family is not present at this time. No fevers, no nausea. No specific complaints. - Current Medication List Current Medications: Active Medications Acetaminophen (Tylenol -) 650 mg PO Q6H [facility] Last Admin: 05/31/18 12:13 Dose: 650 mg Meropenem 1 gm/ Dextrose 100 mls @ 200 mls/hr IVPB Q8H-IV [facility] Last Admin: 05/31/18 09:19 Dose: 200 mls/hr Lactated Ringer's (Lactated Ringers Solution) 1,000 mls @ 50 mls/hr IV ASDIR [facility] Last Admin: 05/30/18 15:17 Dose: 50 mls/hr Ibuprofen (Motrin -) 400 mg PO Q6H [facility] Last Admin: 05/31/18 09:19 Dose: 400 mg Oxycodone HCl (Roxicodone -) 5 mg PO Q6H PRN PRN Reason: Pain Level 7 - 10 BRKTHRU 1ST - Objective Vital Signs: Vital Signs Temperature 98.4 F 05/31/18 09:00 Pulse Rate 85 05/31/18 09:00 Respiratory Rate 20 05/31/18 09:00 Blood Pressure 103/80 05/31/18 09:00 O2 Sat by Pulse Oximetry (%) 99 05/30/18 21:00 Constitutional: Yes: Well Nourished, No Distress, Calm Eyes: Yes: Conjunctiva Clear, EOM Intact. No: Sclera Icterus HENT: Yes: Atraumatic, Normocephalic Gastrointestinal: Yes: Soft, Tenderness (mild RLQ and incisional, no R/G) Extremities: No: Cool, Cyanosis Integumentary: Yes: Incision (x4 dressed). No: Jaundice, Rash Wound/Incision: Yes: Steri Strips (on all incisions), Open to air (left LOIS), Dressing Dry and Intact (x4), Dressing Removed (x4). No: Reddened Neurological: Yes: Alert, Oriented Labs: CBC, BMP 05/31/18 07:00 05/31/18 07:00 CMP Sodium 138 mmol/L (136-145) 05/31/18 07:00 Potassium 3.6 mmol/L (3.5-5.1) 05/31/18 07:00 Chloride 103 mmol/L (98-107) 05/31/18 07:00 Carbon Dioxide 29 mmol/L (21-32) 05/31/18 07:00 Anion Gap 6 MMOL/L (8-16) L 05/31/18 07:00 BUN 16 mg/dL (7-18) 05/31/18 07:00 Creatinine 0.9 mg/dL (0.55-1.3) 05/31/18 07:00 Creat Clearance w eGFR > 60 (>60) 05/31/18 07:00 Random Glucose 87 mg/dL (74-106) 05/31/18 07:00 Calcium 8.4 mg/dL (8.5-10.1) L 05/31/18 07:00 Total Bilirubin 0.9 mg/dL (0.2-1) 05/31/18 07:00 AST 23 U/L (15-37) 05/31/18 07:00 ALT 68 U/L (13-61) H 05/31/18 07:00 Alkaline Phosphatase 81 U/L (45-117) 05/31/18 07:00 Total Protein 5.2 g/dl (6.4-8.2) L 05/31/18 07:00 Albumin 2.2 g/dl (3.4-5.0) L 05/31/18 07:00 LFTs down, nearly all normal wbc down, almost normal Problem List - Problems (1) Calculus of gallbladder with acute and chronic cholecystitis without obstruction Assessment/Plan: POD2 s/p laparoscopic cholecystectomy for acute perforated, gangrenous cholecystitis small bit of fundal back wall left and cauterized, duct and artery clipped f/u pathology pt feeling much better, pain controlled with oral nonnarcotics voiding, ambulating, tolerating low-fat diet continue antibiotics per ID at least until afebrile, normal wbc and LFTs ? if will need to complete course of po abx on d/c trend labs encouraged OOB, ambulation as able following with you likely d/c by tomorrow, possibly on abx Code(s): K80.12 - CALCULUS OF GB W ACUTE AND CHRONIC CHOLECYST W/O OBSTRUCTION (2) RUQ pain Code(s): R10.11 - RIGHT UPPER QUADRANT PAIN (3) Elevated LFTs Code(s): R94.5 - ABNORMAL RESULTS OF LIVER FUNCTION STUDIES (4) Hyperbilirubinemia Code(s): E80.6 - OTHER DISORDERS OF BILIRUBIN METABOLISM
[2018-05-31] MEDS: LACTATED RINGERS SOLUTION 1,000 ML IV SCH (18:23)
[2018-06-01] MEDS: LACTATED RINGERS SOLUTION 1,000 ML IV SCH (00:16)
[2018-06-01] MEDS: ACETAMINOPHEN 325 MG TABLET (FP) PO SCH ×3 (00:16→12:10)
[2018-06-01] MEDS: MEROPENEM 1 GM in DEXTROSE 5%-WATER 100 ML IVPB SCH ×2 (02:09→09:18)
[2018-06-01] MEDS: IBUPROFEN 400 MG TABLET (FP) PO SCH ×2 (03:00→09:18)
[2018-06-01 08:06] LABS: BASO % 0.3 % (0-2.0); HEMATOCRIT 32.8 % (35.4-49); HEMOGLOBIN 11.2 GM/dL (11.7-16.9); LYMPH % 13.1 % (8-40); MCH 27.6 pg (25.7-33.7); MEAN CELL VOLUME 81.1 fl (80-96); MEAN PLT VOLUME 9.6 fl (7.5-11.1); MONO % 8.5 % (3.8-10.2); NEUT % 72.1 % (42.8-82.8); PLATELET COUNT 200 K/MM3 (134-434); RBC 4.04 M/mm3 (4.00-5.60); RDW 13.9 % (11.9-15.9); WHITE BLOOD COUNT 6.3 K/mm3 (4.0-10.0)
[2018-06-01 08:26] LABS: ALBUMIN 2.1 g/dl (3.4-5.0); ALK PHOS 99 U/L (45-117); ANION GAP 6 MMOL/L (8-16); BILIRUBIN,TOTAL 0.7 mg/dL (0.2-1); BLOOD UREA NITROGEN 12 mg/dL (7-18); CALCIUM 7.9 mg/dL (8.5-10.1); CHLORIDE 104 mmol/L (98-107); CO2 30 mmol/L (21-32); CREATININE 0.7 mg/dL (0.55-1.3); GLUCOSE,RANDOM 82 mg/dL (74-106); POTASSIUM 3.5 mmol/L (3.5-5.1); SGOT/AST 20 U/L (15-37); SGPT/ALT 54 U/L (13-61); SODIUM 140 mmol/L (136-145); TOT PROT 4.8 g/dl (6.4-8.2)
[2018-06-01] MEDS ORDERED: PT OWN MED DRAWER 7, Y5N ONE (09:15)
--- NOTE | 2018-06-01 11:10 | PN ---
Progress Note, Physician History of Present Illness: Pt s/p lap parul for acute cholecystitis with findings of perforated, gangrenous cholecystitis. Seen and examined in bed, awake, feeling well. He is ambulating, voiding, tolerating diet, +bowel function. Pain is controlled with alternating Tylenol and ibuprofen. Family is not present at this time, but spoke with his brother on speakerphone with him. No fevers, no nausea. No specific complaints. - Current Medication List Current Medications: Active Medications Acetaminophen (Tylenol -) 650 mg PO Q6H [facility] Last Admin: 06/01/18 05:57 Dose: 650 mg Meropenem 1 gm/ Dextrose 100 mls @ 200 mls/hr IVPB Q8H-IV [facility] Last Admin: 06/01/18 09:18 Dose: 200 mls/hr Lactated Ringer's (Lactated Ringers Solution) 1,000 mls @ 50 mls/hr IV ASDIR [facility] Last Admin: 06/01/18 00:16 Dose: 50 mls/hr Ibuprofen (Motrin -) 400 mg PO Q6H [facility] Last Admin: 06/01/18 09:18 Dose: 400 mg Oxycodone HCl (Roxicodone -) 5 mg PO Q6H PRN PRN Reason: Pain Level 7 - 10 BRKTHRU 1ST - Objective Vital Signs: Vital Signs Temperature 98.0 F 06/01/18 05:00 Pulse Rate 85 06/01/18 05:00 Respiratory Rate 20 06/01/18 05:00 Blood Pressure 112/69 06/01/18 05:00 O2 Sat by Pulse Oximetry (%) 99 05/30/18 21:00 Constitutional: Yes: Well Nourished, No Distress, Calm Eyes: Yes: Conjunctiva Clear, EOM Intact. No: Sclera Icterus HENT: Yes: Atraumatic, Normocephalic Gastrointestinal: Yes: Soft, Tenderness (mild incisional, minimal epigastric, RUQ) Extremities: No: Cool, Cyanosis Integumentary: Yes: Incision (x4 with steris). No: Jaundice, Rash Wound/Incision: Yes: Clean/Dry, Well Approximated, Steri Strips (x4), Open to air Neurological: Yes: Alert, Oriented Labs: CBC, BMP 06/01/18 07:00 06/01/18 07:00 wbc down to normal CMP Sodium 140 mmol/L (136-145) 06/01/18 07:00 Potassium 3.5 mmol/L (3.5-5.1) 06/01/18 07:00 Chloride 104 mmol/L (98-107) 06/01/18 07:00 Carbon Dioxide 30 mmol/L (21-32) 06/01/18 07:00 Anion Gap 6 MMOL/L (8-16) L 06/01/18 07:00 BUN 12 mg/dL (7-18) 06/01/18 07:00 Creatinine 0.7 mg/dL (0.55-1.3) 06/01/18 07:00 Creat Clearance w eGFR > 60 (>60) 06/01/18 07:00 Random Glucose 82 mg/dL (74-106) 06/01/18 07:00 Calcium 7.9 mg/dL (8.5-10.1) L 06/01/18 07:00 Total Bilirubin 0.7 mg/dL (0.2-1) 06/01/18 07:00 AST 20 U/L (15-37) 06/01/18 07:00 ALT 54 U/L (13-61) 06/01/18 07:00 Alkaline Phosphatase 99 U/L (45-117) 06/01/18 07:00 Total Protein 4.8 g/dl (6.4-8.2) L 06/01/18 07:00 Albumin 2.1 g/dl (3.4-5.0) L 06/01/18 07:00 LFTs down to normal Problem List - Problems (1) Calculus of gallbladder with acute and chronic cholecystitis without obstruction Assessment/Plan: POD3 s/p laparoscopic cholecystectomy for acute perforated, gangrenous cholecystitis small bit of fundal back wall left and cauterized, duct and artery clipped f/u pathology pt feeling well, pain controlled with oral nonnarcotics voiding, ambulating, tolerating low-fat diet continue po abx on d/c - ID to recommend choice and duration pharmacy is [address] [place] [id number]?, pt not sure of name ok for d/c home to finish abx f/u next week in surg clinic instructions in d/c plan discussed with Dr. Hernandez Code(s): K80.12 - CALCULUS OF GB W ACUTE AND CHRONIC CHOLECYST W/O OBSTRUCTION (2) RUQ pain Assessment/Plan: resolved Code(s): R10.11 - RIGHT UPPER QUADRANT PAIN (3) Elevated LFTs Assessment/Plan: resolved Code(s): R94.5 - ABNORMAL RESULTS OF LIVER FUNCTION STUDIES (4) Hyperbilirubinemia Assessment/Plan: resolved Code(s): E80.6 - OTHER DISORDERS OF BILIRUBIN METABOLISM
--- NOTE | 2018-06-01 11:49 | PN ---
Progress Note, Physician History of Present Illness: Awake, alert Seated in bed No c/o abdominal pain Tolerating diet + BM No fever/ chills Afebrile WBC WNL BC (-) - Current Medication List Current Medications: Active Medications Acetaminophen (Tylenol -) 650 mg PO Q6H [facility] Last Admin: 06/01/18 05:57 Dose: 650 mg Amoxicillin/Clavulanate Potassium (Augmentin - 875mg Tablet) 1 tab PO BID@0800, 1730 [facility] Lactated Ringer's (Lactated Ringers Solution) 1,000 mls @ 50 mls/hr IV ASDIR [facility] Last Admin: 06/01/18 00:16 Dose: 50 mls/hr Ibuprofen (Motrin -) 400 mg PO Q6H [facility] Last Admin: 06/01/18 09:18 Dose: 400 mg Oxycodone HCl (Roxicodone -) 5 mg PO Q6H PRN PRN Reason: Pain Level 7 - 10 BRKTHRU 1ST - Objective Vital Signs: Vital Signs Temperature 98.0 F 06/01/18 05:00 Pulse Rate 85 06/01/18 05:00 Respiratory Rate 20 06/01/18 05:00 Blood Pressure 112/69 06/01/18 05:00 O2 Sat by Pulse Oximetry (%) 99 05/30/18 21:00 Constitutional: Yes: No Distress Eyes: Yes: Conjunctiva Clear Cardiovascular: Yes: Regular Rate and Rhythm, S1, S2 Respiratory: Yes: CTA Bilaterally Gastrointestinal: Yes: Normal Bowel Sounds, Soft. No: Tenderness Edema: No Labs: CBC, BMP 06/01/18 07:00 06/01/18 07:00 INR, PTT INR 1.27 (0.83-1.09) H 05/28/18 11:00 Assessment/Plan S/P laparoscopic cholecystectomy POD #3 Operative findings discussed with surgery Substitute Augmentin 875mg po bid x 7d
[2018-06-01 13:36] VITALS: BP 120/73; PULSE 87; TEMP 98.4
--- NOTE | 2018-06-01 14:30 | PATH ---
Surgical Pathology Report Patient Name: TYSON CUTLER [facility]. Rec. #: [id number] /Age/Gender: 1960 (Age: 58) / M Account: [id number] Location: [address] [place] [address] Taken: 05/29/2018 Received: 05/31/2018 Reported: 06/01/2018 Physicians: Dorothy Justin M.D. Specimen(s) Received GALLBLADDER Clinical History Acute cholecystitis Final Diagnosis GALLBLADDER, LAPAROSCOPIC CHOLECYSTECTOMY: ACUTE AND CHRONIC CHOLECYSTITIS WITH CHOLELITHIASIS. ONE BENIGN LYMPH NODE (0). Electronically Signed Dayami Zuleta M.D. Gross Description Received in formalin, labeled "gallbladder," is a markedly disrupted gallbladder which measures 6.5 x 2.5 x 2.5 cm. with an attached 0.2 cm. portion of cystic duct. The outer surface is hemorrhagic with focal white exudate. Two dark brown stones are received separately in the container. The largest stone measures 1.1 cm in greatest dimension. The mucosa is focally superficial eroded. The wall of the gallbladder measures 0.3 cm. in maximal thickness. No masses are identified. Restorative Coordinator sections are submitted in one cassette. LEOBARDO/05/31/2018 tanisha/05/31/2018
--- NOTE | 2018-06-01 15:20 | PN ---
Teaching Attending Note Name of Resident: Emilie Marie ATTENDING PHYSICIAN STATEMENT I saw and evaluated the patient. I reviewed the resident's note and discussed the case with the resident. I agree with the resident's findings and plan as documented. SUBJECTIVE: asymptomatic OBJECTIVE: Vital Signs Period Temp Pulse Resp BP Sys/Mackenzie Pulse Ox Last 24 Hr 98.0 F-98.6 F 82-92 20-20 112-120/69-82 Middle aged man not in distress HEENT: Mm moist, no anemia, PERRLA EOMI NECK: No JVd No Bruit CHEST: CTA B/L CVS; S1S2 R no m/g/r ABD: S/P Cholycystectomy mild tenderness r Bs + EXT; No edema, no calf tenderness COMMISSIONS COORDINATOR: AOx3 non focal ASSESSMENT AND PLAN:58 yrs old man admitted with Rt UQ pain s/p cholycystectommy improved TWBC normal, claeraed by surgery to Dc home on Po meds Plan; DC as per plan Problem List - Problems (1) Calculus of gallbladder with acute and chronic cholecystitis without obstruction Assessment/Plan: Operated on 05/29 improving will F/U surgery recommendations Code(s): K80.12 - CALCULUS OF GB W ACUTE AND CHRONIC CHOLECYST W/O OBSTRUCTION (2) Elevated LFTs Assessment/Plan: Due to acute cholycystitis Code(s): R94.5 - ABNORMAL RESULTS OF LIVER FUNCTION STUDIES (3) Abdominal pain Assessment/Plan: Improved Code(s): R10.9 - UNSPECIFIED ABDOMINAL PAIN
--- NOTE | 2018-06-01 15:26 | PN ---
GI Progress Note Subjective: No acute events States feeling well OP note reviewed - Objective Vital Signs: Vital Signs Temperature 98.4 F 06/01/18 13:35 Pulse Rate 87 06/01/18 13:35 Respiratory Rate 20 06/01/18 13:35 Blood Pressure 120/73 06/01/18 13:35 O2 Sat by Pulse Oximetry (%) 99 05/30/18 21:00 Constitutional: Calm Eyes: No: Sclera Icterus Cardiovascular: Yes: Regular Rate and Rhythm Respiratory: Yes: CTA Bilaterally ...Auscultate: Yes: Normoactive Bowel Sounds ...Palpate: Yes: Soft, Tenderness (Mild TTP at trochar sites) ...Percussion: No: Tympanitic Edema: No (No LE edema) Neurological: Yes: Alert Labs: CBC, BMP 06/01/18 07:00 06/01/18 07:00 INR, PTT INR 1.27 (0.83-1.09) H 05/28/18 11:00 Problem List - Problems (1) Cholecystitis Assessment/Plan: S/P lap parul Clinically appeas well Post op care per surgery Abx per ID Code(s): K81.9 - CHOLECYSTITIS, UNSPECIFIED
--- NOTE | 2018-06-01 16:12 | DS ---
Physical Exam: SUBJECTIVE: Patient seen and examined. No acute events overnight. OBJECTIVE: Vital Signs Period Temp Pulse Resp BP Sys/Mackenzie Pulse Ox Last 24 Hr 98.0 F-98.6 F 82-92 20-20 112-120/69-82 PHYSICAL EXAM GENERAL: Hungarian-speaking male. AAOx3. Resting comfortably in bed. HEENT: AT/NC. EOMI. KENDALL. Moist mucus membranes. NECK: Trachea midline, full range of motion, supple. LUNGS: CTA B/L. No wheezes noted. HEART: Regular rate and rhythm, S1, S2 without murmur, rub or gallop. ABDOMEN: Soft, nontender, nondistended, normoactive bowel sounds, no guarding, no rebound, no hepatosplenomegaly, no masses. EXTREMITIES: 2+ pulses, warm, well-perfused, no edema. NEUROLOGICAL: Cranial nerves II through XII grossly intact. Normal speech, gait not observed. PSYCH: Normal mood, normal affect. SKIN: Warm, dry, normal turgor, no rashes or lesions noted LABS Laboratory Results - last 24 hr 06/01/18 06/01/18 07:00 07:00 WBC 6.3 RBC 4.04 Hgb 11.2 L Hct 32.8 L MCV 81.1 MCH 27.6 MCHC 34.0 RDW 13.9 Plt Count 200 MPV 9.6 Absolute Neuts (auto) 4.6 Neutrophils % 72.1 Lymphocytes % 13.1 D Monocytes % 8.5 D Eosinophils % 6.0 H D Basophils % 0.3 Nucleated RBC % 0 Sodium 140 Potassium 3.5 Chloride 104 Carbon Dioxide 30 Anion Gap 6 L BUN 12 Creatinine 0.7 Creat Clearance w eGFR > 60 Random Glucose 82 Calcium 7.9 L Total Bilirubin 0.7 AST 20 ALT 54 Alkaline Phosphatase 99 Total Protein 4.8 L Albumin 2.1 L HOSPITAL COURSE: Date of Admission:05/28/18 58M Hungarian-speaking w/ no significant pmhx presented to the hospital with abdominal pain found to have perforated, gangrenous and necrotic GB. Pt underwent lap parul, which was uneventful with no complications. He was monitored in the hospital and given pain meds for pain control. His symptoms improved and by the end of the hospital stay, he was able to ambulate and tolerate PO diet. He was discharged home with instructions to follow up with surg outpatient and to follow up with his PCP. Date of Discharge: 06/01/18 Minutes to complete discharge: 40 Discharge Summary Reason For Visit: CHOLECYSTITIS, ABDOMINAL PAIN, VOMITING Condition: Improved - Instructions Diet, Activity, Other Instructions: Postoperative instructions: You had a laparoscopic cholecystectomy on 05/29/[address] Glen Chávez of [facility]. Activity: Resume your usual activities gradually, but no heavy exertion or lifting more than 10-15 pounds for 1 month. Sticky tapes on incisions will fall off by themselves. You may shower daily, just pat the incision areas dry. No bath or swimming until skin incisions have healed. Eat lightly at first, but advance to your usual diet as tolerated. Be careful of meals which are high in fat (fats, greases, oils, full-fat dairy products), as your body may not digest all the fats well, which may cause bloating, cramping and/or diarrhea. Medications: For pain, you may use and alternate Tylenol (acetaminophen) 1-2 pills and/or ibuprofen 200 mg (1-2 pills) every 6 hours each as needed; this means that you can take one OR the other at 3-hour intervals. Do not take more than 4000mg of acetaminophen in a day. Take medications as prescribed or indicated on the labeling. You should take all of your ANTIBIOTICS as prescribed until they are finished, even if you are feeling well. Please take Augmentin 875 mg by mouth twice a day for 7 days. Follow-up: Call Dr. Chávez's office at [phone] to make your postop appointment (Thursday in approximately 2 weeks after surgery). Clinic is held in the [facility] on the first floor of [facility]. Call the office if you have: * increasing pain not responsive to pain medication * fever of 101F or higher * vomiting * unusual or increasing bleeding or drainage from wounds * increasing redness or swelling at wound sites Also, see your primary medical doctor (Dr. Soriano) within 1-2 weeks. Referrals: Glen Chávez MD [Staff Physician] - 06/09/18 (CALL for appointment) Jewel Soriano MD [Primary Care Provider] - Disposition: HOME - Home Medications Comprehensive Discharge Medication List: Ambulatory Orders Acetaminophen [Tylenol .Regular Strength -] 650 mg PO Q6H tablet 06/01/18 Amoxicillin/Potassium Clav [Augmentin 875-125 Tablet] 1 each PO BID #13 tablet 06/01/18 Cholecalciferol (Vitamin D3) [Dialyvite Vitamin D3 Max] 50,000 unit PO DAILY Ibuprofen [Motrin -] 400 mg PO Q6H tablet 06/01/18 Imiquimod [Aldara] 1 pack WEEKLY 06/01/18 Polyvinyl Alcohol/Povidone/Pf [Refresh Classic Eye Drops] 1 drop QID 06/01/18 This patient is new to me today: No Emergency Visit: Yes ED Registration Date: 05/28/18 Care time: The patient presented to the Emergency Department on the above date and was hospitalized for further evaluation of their emergent condition. Critical Care patient: No - Discharge Referral Referred to [facility] No
[2018-06-01 17:12] LABS: HBSAG SCREEN Negative (Negative); HEP A AB, IGM Negative (Negative); HEP B CORE AB, TOT Negative (Negative)
[2018-06-01] MEDS ORDERED: AMOX TR/POT CLAV 875MG/125MG TABLETS (FP) PO SCH (17:30)
== END 2018-06-01 15:29 | disposition home or self-care (01) | DRG 263 ==
LOC: JER 09:57 → JERBED 13:18 → J6S 19:47
PROVIDERS: ADMIT Internal Medicine; ATTEND Internal Medicine
PROC: 0DNW4ZZ Release Peritoneum, Percutaneous Endoscopic Approach (ICD-10-PCS; 2018-05-29)
PROC: 0WCG4ZZ Extirpation of Matter from Peritoneal Cavity, Percutaneous Endoscopic Approach (ICD-10-PCS; 2018-05-29)
PROC: 0FT44ZZ Resection of Gallbladder, Percutaneous Endoscopic Approach (ICD-10-PCS; principal; 2018-05-29 14:30)
DX: K80.12 Calculus of gallbladder with acute and chronic cholecystitis without obstruction (principal); K82.2 Perforation of gallbladder; R94.5 Abnormal results of liver function studies; R10.11 Right upper quadrant pain; E80.6 Other disorders of bilirubin metabolism; R11.2 Nausea with vomiting, unspecified; D72.829 Elevated white blood cell count, unspecified; R74.0 Nonspecific elevation of levels of transaminase and lactic acid dehydrogenase [LDH]
CPT/HCPCS: 36415; 71045-TC-FY; 74181-TC; 76705-TC; 80053; 80074; 81003; 81015; 82248; 83690; 83735; 84100; 85025; 85610; 85730; 86704; 86706; 86708; 86850; 86900; 86901; 87040; 87086; 87340; 88304-TC; 93005; 93010; 94010; 94760; 99283-25; J0131; J7030

== ENCOUNTER 2023-08-19 12:10 | Emergency (ER) | payer OTHER ==
[2023-08-19 12:20] VITALS: BP 115/79; PULSE 89; RESP 18; TEMP 98.3; BMI 26.6
[2023-08-19] MEDS ORDERED: IBUPROFEN 400 MG TABLET (FP) PO ONE (13:22)
[2023-08-19] MEDS: IBUPROFEN 400 MG TABLET (FP) PO ONE (13:22)
== END 2023-08-19 14:14 | disposition home or self-care (01) ==
LOC: JER 12:10
DX: R51.9 Headache, unspecified (principal); B34.9 Viral infection, unspecified; R50.9 Fever, unspecified; Z20.822 Contact with and (suspected) exposure to COVID-19
CPT/HCPCS: 0241U-QW; 71046-TC-FY; 99284-25